=== PATIENT | male | born 1935 | race Caucasian/White ===

== ENCOUNTER 2017-02-04 13:55 | Inpatient (IN) | payer MEDICARE, OTHER ==
[2017-02-04 14:59] LABS: PCO2 Arterial 27 mmHg (35-45)
[2017-02-04] MEDS ORDERED: Furosemide IV* 10 MG/ML VIAL (40 MG) IV SLOW PU ONE ×3 (15:04→19:52)
--- NOTE | 2017-02-04 15:05 | RAD ---
HISTORY: Shortness of breath COMPARISONS: January 30, 2017 VIEWS:1: Single frontal portable view of the chest at 2:55 PM FINDINGS: LINES AND TUBES: There is a right-sided pacemaker. CARDIOMEDIASTINAL SILHOUETTE: The cardiomediastinal silhouette is normal for portable technique. PLEURA: The costophrenic angles are sharp. No pleural abnormalities are noted. LUNG PARENCHYMA: The lung volumes are low. The lungs are clear accounting for the phase of respiration. ABDOMEN: The upper abdomen is clear. There is no subphrenic gas. BONES AND SOFT TISSUES: No bone or soft tissue abnormalities are noted. IMPRESSION: LOW LUNG VOLUMES. NO ACTIVE CARDIOPULMONARY DISEASE.
[2017-02-04 15:31] LABS: Hematocrit 30 % (42-52); Hemoglobin 9.9 g/dl (14.0-18.0); Mean Corpuscular HGB Conc 33 g/dl (31-36); Mean Corpuscular Hemoglobin 29 pg (27-31); Mean Corpuscular Volume 89 fL (80-94); Mean Platelet Volume 8 um3 (7.4-10.4); Red Cell Distribution Width 14 % (10.5-15); White Blood Count 13.8 10^3/ul (3.5-10.8)
[2017-02-04 15:47] LABS: Troponin I 0.03 ng/mL (<0.04)
[2017-02-04 15:54] LABS: Albumin 2.8 g/dL (3.2-5.2); BUN/Creatinine Ratio 12.3 (8-20); EGFR African American 7.1 (>60); EGFR Non-African American 5.5 (>60); Globulin 4.4 g/dL (2-4); Magnesium 2.5 mg/dL (1.9-2.7); Potassium 4.5 mmol/L (3.5-5.0); Total Bilirubin 0.6 mg/dL (0.2-1.0); Total Protein 7.2 g/dL (6.4-8.9)
[2017-02-04] MEDS ORDERED: Ondansetron INJ* 2 MG/ML VIAL IV PRN (16:32)
[2017-02-04] MEDS ORDERED: Acetaminophen TAB* 325 MG PO PRN (16:32)
[2017-02-04] MEDS ORDERED: Metolazone TAB* 5 MG PO ONE (16:32)
[2017-02-04] MEDS: Sodium Citrate/Citric Acid* 15 ML UDC PO SCH ×2 (17:22→20:36)
--- NOTE | 2017-02-04 18:37 | ED ---
Rebecca Garcia Edward, scribed for Alfred Leyva on 02/04/17 at 1422 . Shortness of Breath - HPI Summary HPI Summary: 81 y/o male CYNTHIA c/o gradual onset SOB on exertion that started three weeks ago and became worse this morning. SOB aggravated by standing, ambulating and talking. Associated sx: productive cough. Denies fever. PMHx kidney failure. - History of Current Complaint Chief Complaint: EDShortnessOfBreath Time Seen by Provider: 02/04/17 14:12 Hx Obtained From: Patient Onset/Duration: Lasting Hours, Still Present Dyspnea At: Exertion Aggrevating Factors: Movement - Standing, ambulating, talking Associated Signs & Symptoms: Cough (Productive) - Allergy/Home Medications Allergies/Adverse Reactions: Allergies Allergy/AdvReac Type Severity Reaction Status Date / Time No Known Allergies Allergy Verified 01/24/17 15:29 Home Medications: Home Medications Furosemide TAB* [Lasix TAB*] 80 mg PO DAILY 02/04/17 [History Confirmed 02/04/17 ] Omeprazole CAP* [Prilosec CAP* 20 MG] 20 mg PO DAILY 02/04/17 [History Confirmed 02/04/17] Sodium Citrate & Citric Acid [Cytra-2] 1 suhas PO TID 02/04/17 [History Confirmed 02/04/17] PMH/Surg Hx/FS Hx/Imm Hx Previously Healthy: No Endocrine/Hematology History: Reports: Hx Thyroid Disease Cardiovascular History: Reports: Hx Hypertension History: Reports: Other Problems/Disorders - renal insufficiency Musculoskeletal History: Reports: Other Musculoskeletal History - r total hip - Immunization History Date of Tetanus Vaccine: Unk Date of Influenza Vaccine: None Infectious Disease History: Denies: Traveled Outside the [place] in Last 30 Days - Family History Known Family History: Negative: Other - Negative: CAD, arrythmias - Social History Alcohol Use: None Hx Substance Use: No Substance Use Type: Reports: None Hx Tobacco Use: No Smoking Status (MU): Never Smoked Tobacco Review of Systems Constitutional: Negative Eyes: Negative ENT: Negative Cardiovascular: Negative Positive: Shortness Of Breath, Cough - Productive Gastrointestinal: Negative Genitourinary: Negative Musculoskeletal: Negative Skin: Negative Neurological: Negative Psychological: Normal All Other Systems Reviewed And Are Negative: Yes Physical Exam Triage Information Reviewed: Yes Vital Signs Reviewed: Yes Appearance: Positive: Well-Appearing, No Pain Distress Skin: Positive: Warm, Skin Color Reflects Adequate Perfusion, Dry Head/Face: Positive: Normal Head/Face Inspection Eyes: Positive: EOMI, TREVIN ENT: Positive: Normal ENT inspection Neck: Positive: Supple, Nontender Respiratory/Lung Sounds: Positive: Breath Sounds Present, Other - Crepitations bilaterally Cardiovascular: Positive: RRR, Pulses are Symmetrical in both Upper and Lower Extremities Abdomen Description: Positive: Nontender, Soft Bowel Sounds: Positive: Present Musculoskeletal: Positive: Normal, Strength/ROM Intact Neurological: Positive: Normal, Sensory/Motor Intact, Alert, Oriented to Person Place, Time Diagnostics - Laboratory Result Diagrams: 02/04/17 15:19 02/04/17 15:19 Lab Statement: Any lab studies that have been ordered have been reviewed, and results considered in the medical decision making process. - Radiology CXR Xray Interpretation: No Acute Changes - LOW LUNG VOLUMES. NO ACTIVE CARDIOPULMONARY DISEASE. ED PHYSICIAN AGREEABLE Radiology Interpretation Completed By: Radiologist - EKG 1 EKG Interpretation: 14:40 - SINUS RHYTHM @ 67 BPM Course/Dx - Course Assessment/Plan: 81 y/o male BIBA c/o gradual onset SOB on exertion that started three weeks ago and became worse this morning. SOB aggravated by standing, ambulating and talking. Associated sx: productive cough. Denies fever. PMHx kidney failure. EKG 14:40 - SINUS RHYTHM @ 67 BPM. CXR SHOWS LOW LUNG VOLUMES. NO ACTIVE CARDIOPULMONARY DISEASE. Discussed with Dangelo Barajas who accepted the pt for admission to [facility] [place]. - Diagnoses Provider Diagnoses: Hypoxia, Dyspnea, Anemia, Renal failure - Physician Notifications Discussed Care of Patient With: Dangelo Barajas Time Discussed With Above Provider: 16:30 Discharge - Discharge Plan Condition: Stable Disposition: ADMITTED TO Health system documentation as recorded by the Rebecca armendariz Edward accurately reflects the service I personally performed and the decisions made by , Alfred Leyva.
--- NOTE | 2017-02-04 20:31 | HP ---
ATTENDING ADDENDUM NOW INCLUDED ON THIS REPORT CC: Dr. Zimmerman; Dr. Guajardo; Dr. Nolen; HISTORY AND PHYSICAL: DATE OF ADMISSION: 02/04/17 PRIMARY CARE PROVIDER: Dr. Zimmerman. CONSULTING DISPATCHER SERVICE: Dr. Guajardo. CONSULTING SURGEON: Dr. Nolen. ATTENDING PHYSICIAN: Dr. Styles * (DICTATED BY DANGELO FRY NP) CHIEF COMPLAINT: Shortness of breath. HISTORY OF PRESENT ILLNESS: Mr. Dockery is an 81-year-old male patient who has a history of CKD, stage 5. He has been getting workup for placement of a PD catheter and unfortunately, over the last 3 weeks, he has had progressive worsening shortness of breath with minimal exertion. He noticed today that even just changing positions in bed, he was getting really winded. He was instructed by Dr. Guajardo that if this were to happen, he should get in to the ER to be evaluated, which he did. He denies having any chest pain. He does admit to having what sounds like orthopnea because if he lies flat, he gets coughing, when he sits up, he feels better. To his knowledge, he has not gained weight, but then he says his pants have been fitting tighter and he has to go up a loop. He says that he recently was prescribed Lasix 80 mg. He has been taking this. He has been urinating, but it just seems that it has not been helping. He denied having any fevers, no chills. He denied having any abdominal discomfort. No nausea or any vomiting. He was concerned because of the shortness of breath, he came in, was evaluated and we were asked to evaluate him in admission, because it appeared that his renal failure was becoming worse and that he may require a more urgent dialysis. PAST MEDICAL HISTORY: Significant for: 1. CKD, stage 5, awaiting dialysis. 2. Hypertension. 3. Hypothyroidism. 4. Complete heart block, status post pacemaker. 5. Basal cell skin cancer. PAST SURGICAL HISTORY: 1. He has had a pacemaker placement. 2. He has had a hernia repair. 3. He has had right total hip arthroplasty. MEDICATIONS: His home meds according to the list they provided include: 1. Norvasc 10 mg at bedtime. 2. Bicitra 15 cc p.o. four times a day. 3. Omeprazole 20 mg daily. 4. Lasix 80 mg daily. 5. Synthroid 100 mcg p.o. daily. 6. Atenolol 12.5 mg p.o. b.i.d. ALLERGIES TO MEDICATIONS: Include no known drug allergies. FAMILY HISTORY: His mother had a history of hypertension, father had a history of stroke. SOCIAL HISTORY: He does not smoke. He does not drink. Surrogate decision maker is his . REVIEW OF SYSTEMS: There is no documented fever. He denied any significant weight change to me. There was no double vision. He denied having any ear discharge. There was no rhinorrhea. No sore throat, no thyroid enlargement. Denies any chest pain. There is orthopnea. There is no nocturnal dyspnea. There is no abdominal pain. There was no nausea or vomiting. No dysuria. There was no frequency. No loss of consciousness. No pruritus and no skin ulcerations. Review of 14 systems was completed, all others negative. PHYSICAL EXAMINATION GENERAL: At this time, Mr. Dockery is an 81-year-old male patient. He actually appears to be well nourished, well developed. He does not appear to be in any acute distress. VITAL SIGNS: Reveal blood pressure 127/60 with a pulse of 67, respirations 22, O2 sat on room air was 95%, temperature 97.4. HEENT: Head is atraumatic and normocephalic. Eyes: EOMs intact. Sclerae anicteric. Throat: Oral mucosa appears to be moist. No oropharyngeal erythema. NECK: Supple. LUNGS: Diminished in the bases. No wheezes, rales, or rhonchi. HEART: Sounds S1, S2. Regular rate and rhythm. No murmurs, rubs, or gallops. ABDOMEN: Soft. It was nontender, but it was mildly distended. EXTREMITIES: Pulses were 2+ throughout. He is able to move all 4 extremities with 5/5 strength. He does have some trace edema bilaterally. NEUROLOGIC: He is awake, he is alert, and he is oriented x3. Tongue midline. Folder Hand equal. No gross focal deficits. SKIN: Intact. DIAGNOSTIC STUDIES/LAB DATA: His labs today revealed a WBC of 13.8, RBC of 3.40, hemoglobin of 9.9, hematocrit of 30, and a platelet count of 413. His INR was 1.23, PTT of 24.9. Blood gas revealed a pH of 7.41, PCO2 of 27, PO2 66 , bicarb 19. The sodium was 131, potassium 4.5, chloride of 98, bicarb 17, BUN 114, his creatinine was 9.28, his glucose was 177, lactate 1.1, calcium 9, total mag 2.5. Total bili 0.6, AST 46, ALT 53, alk phos 154. BNP 271. Albumin of 2.8. He did have a chest x-ray obtained today, which to my review it does not appear to be a poor film; it has poor inspiration. Radiology read it as low lung volumes. No active cardiopulmonary disease. He had an EKG obtained today, which shows normal sinus rhythm, there is a lot of artifact, no gross ST elevations or T-wave inversions. Old medical records were reviewed. He did have an echo with Dr. Valverde which showed moderate aortic stenosis with an EF of 60% to 65%. Old medical records were reviewed. ASSESSMENT AND PLAN: Mr. Dockery is an 81-year-old male patient coming in to the ER today with complaints of shortness of breath that has been getting progressively worse over the last 3 weeks. The hospitalist service was asked to evaluate for admission and he will be admitted under inpatient status for: 1. End-stage renal disease, now progressing. At this point, I did touch base with Dr. Guajardo. It looks like that the patient is probably going to require more urgent dialysis. The plan is to go ahead and put tunneled catheter in tomorrow. I do not think he needs emergent dialysis. The plan would be to give him Lasix 120 mg. He got 40 already in the ED and we will give him another 80 now and 5 of Zaroxolyn. We will reevaluate him in the morning to see if we need to do another 120 and another 5 of Zaroxolyn. I did consult with Dr. Guajardo. We will check his lytes and follow them closely. Continue his Bicitra and again, I did touch base with Dr. Nolen, who will hopefully place the catheter tomorrow. 2. Hypertension. We will continue meds as prescribed. 3. History of hypothyroidism. Continue with Synthroid. 4. DVT prophylaxis. He will be placed on heparin subcu. 5. Code status. Full code. 6. Fluids, electrolytes, and nutrition. He can have a renal diet and then he will be n.p.o. after midnight for tonight. TIME SPENT: On the admission was approximately 60 minutes, greater than half the time was spent [id number] with the patient obtaining my history and physical; other half time was spent going over the plan of care with the patient and implementing the plan of care. I did discuss the plan of care with my attending, Dr. Styles; she is in agreement. DANGELO FRY NP ADDENDUM: Trent Dockery is an 81-year-old male with history of chronic kidney disease, stage 4 to 5, who had been prepared for hemodialysis by Dr. Guajardo. Patient presents complaining with worsening shortness of breath and his creatinine is 9. He has increased anion gap and carbon dioxide of 17. At this point, patient is going to be admitted to the hospital with preparation for dialysis. Surgery was notified about the need of IV access for dialysis. Dr. Guajardo will follow with the patient. For further details of presentation and plan, please see history and physical dictated by Dangelo Fry on 02/04/17 with which I agree. EDNA STYLES MD [id number]/CPS #: [id number]/[id number] #: [id number] CATHY
[2017-02-04] MEDS: Atenolol TAB* 25 MG PO SCH (20:37)
[2017-02-04] MEDS: amLODIPine TAB* 5 MG PO SCH (20:38)
[2017-02-04] MEDS: Heparin VIAL(*) 5000 UNITS/ML VIAL (FIVE THOUSAND) SUBCUT SCH (20:43)
--- NOTE | 2017-02-04 21:54 | HP ---
HISTORY AND PHYSICAL: ADDENDUM: Trent Dockery is an 81-year-old male with history of chronic kidney disease, stage 4 to 5, who had been prepared for hemodialysis by Dr. Guajardo. Patient presents complaining with worsening shortness of breath and his creatinine is 9. He has increased anion gap and carbon dioxide of 17. At this point, patient is going to be admitted to the hospital with preparation for dialysis. Surgery was notified about the need of IV access for dialysis. Dr. Guajardo will follow with the patient. For further details of presentation and plan, please see history and physical dictated by Dangelo Barajas on 02/04/17 with which I agree. [id number]/[facility] #: [id number] MTDD
[2017-02-04 23:36] LABS: Urine Bacteria Absent (Absent); Urine Bilirubin Negative (Negative); Urine Glucose Negative (Negative); Urine Nitrite Negative (Negative)
[2017-02-05] MEDS: Heparin VIAL(*) 5000 UNITS/ML VIAL (FIVE THOUSAND) SUBCUT SCH ×3 (04:43→20:44)
[2017-02-05] MEDS: Levothyroxine TAB* 100 MCG TAB PO SCH (05:16)
[2017-02-05 06:02] LABS: Hematocrit 28 % (42-52); Hemoglobin 9.4 g/dl (14.0-18.0); Mean Corpuscular HGB Conc 34 g/dl (31-36); Mean Corpuscular Hemoglobin 30 pg (27-31); Mean Corpuscular Volume 88 fL (80-94); Mean Platelet Volume 8 um3 (7.4-10.4); Red Blood Count 3.17 10^6/ul (4.0-5.4); Red Cell Distribution Width 14 % (10.5-15); White Blood Count 13.9 10^3/ul (3.5-10.8)
[2017-02-05 06:03] LABS: Add Diff/Slide Review? Slide Review Added; Comments Flag Yes
[2017-02-05 06:15] LABS: BUN/Creatinine Ratio 13.1 (8-20); Calcium 8.8 mg/dL (8.6-10.3); EGFR African American 6.8 (>60); EGFR Non-African American 5.3 (>60); Potassium 4.4 mmol/L (3.5-5.0)
--- NOTE | 2017-02-05 09:56 | CONS ---
CC: [facility]; Dr. Tavo Guajardo, Nephrology; Dr. Tavo Zimmerman * CONSULTATION REPORT: DATE OF CONSULT: 02/05/17 REFERRING PROVIDER: Dangelo Barajas NP REASON FOR CONSULT: Hemodialysis catheter placement. 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 Guajardo. He recently had been making plans for placement of a peritoneal dialysis catheter as it was expected he was going to need dialysis soon, but unfortunately over the last several weeks, he has had progressive worsening of shortness of breath, fatigue, and fluid overload. He has been increasing his Lasix dose and Dr. Guajardo has seen him recently; however, he presented to the emergency room with shortness of breath on exertion, which he felt needed evaluation. He has had no chest pain. He has a productive cough. He is not able to ambulate without taking frequent rest stops. He has had no abdominal discomfort. There have been no fevers, shakes, or chills. He has got no nausea or vomiting. PAST MEDICAL HISTORY: 1. Chronic kidney disease, stage 5. 2. Hypertension. 3. Hypothyroidism. 4. History of complete heart block, status post right-sided pacemaker placement. 5. Basal cell cancer. PAST SURGICAL HISTORY: 1. Pacemaker insertion. 2. Hernia repair. 3. Right total hip arthroplasty. MEDICATIONS: On admission include: 1. Omeprazole. 2. Lasix. 3. Synthroid. 4. Atenolol. 5. Norvasc. 6. Bicitra. ALLERGIES: He has no known drug allergies. SOCIAL HISTORY: He does not smoke. He does not drink. He is . 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 He has 2 grown children. REVIEW OF SYSTEMS: He has had no fever. He denies weight change recently. No chest pain, shortness of breath. PHYSICAL EXAM: Temperature is afebrile, pulse 62, respirations are 18, room air saturation 98%, blood pressure 101/49. In general, he is rather slender male, somewhat pale, but appears to be in no apparent distress. He talks in full sentences. Does not appear to be dyspneic. HEENT: There is no jugular venous distention. Trachea was midline. Lungs with diminished breath sounds at the base, but no rhonchi or rales. He has a pacemaker in the right anterior chest wall. No prior surgical incisions in the left neck or chest. Heart has regular rate and rhythm. Abdomen is soft and nondistended. LABORATORY DATA: Laboratory values today include a white blood cell count of 13.9 with a hemoglobin of 9.4. His BUN and creatinine are 126 and 9.59, which are slightly increased from last night's admission. BNP is 271. IMPRESSION AND PLAN: Chronic kidney disease, worsening with fluid overload and worsening renal function per laboratory workup and clinically. I just reviewed his care with Dr. Tavo Guajardo this morning. He would like to start hemodialysis tomorrow and is requested a tunneled hemodialysis catheter be inserted today for optimal use tomorrow. This will be a bridge most likely for his peritoneal dialysis catheter insertion when he is felt to be a surgical candidate for that procedure. I discussed this with the patient. The procedure was explained and the risks of , but not limited to, bleeding, infection, pneumothorax, catheter malfunction/ malposition, the risk of anesthesia, discomfort, and healing times were all explained. In addition, I discussed the pacemaker management with Dr. Oleg Alan, Cardiology, and he will complete the pacemaker form. The patient normally sees Dr. Eitan Valverde and he also would place the pacemaker. [id number]/[facility] #: [id number] [facility] HOSPITALMikayla
[2017-02-05] MEDS: Atenolol TAB* 25 MG PO SCH ×2 (10:06→20:07)
[2017-02-05] MEDS: Sodium Citrate/Citric Acid* 15 ML UDC PO SCH ×3 (10:09→20:07)
[2017-02-05] MEDS ORDERED: ceFAZolin 2 GM PREMIX (*) 50 ML IVPB ONE (13:24)
[2017-02-05] MEDS ORDERED: fentaNYL* 50 MCG/ML 2 ML VIAL (100 MCG VIAL) ONE (13:49)
[2017-02-05] MEDS ORDERED: Midazolam* 1 MG/ML 2 ML VIAL (2 MG) ONE (13:50)
[2017-02-05] MEDS ORDERED: Propofol* 10 MG/ML 20 ML BTL IV PUSH ONE (13:51)
[2017-02-05] MEDS ORDERED: Lidocaine 1% INJ* 10 MG/ML 30 ML SDV ONE (13:54)
[2017-02-05] MEDS ORDERED: Lidocaine 1.5% EPI 1:200,000* 30 ML SDV ONE (14:20)
[2017-02-05] MEDS ORDERED: Bupivacaine 0.5% SDV PF* 30 ML VIAL ONE (14:21)
[2017-02-05] MEDS: Omeprazole CAP* 20 MG PO SCH (16:04)
[2017-02-05] MEDS ORDERED: Iohexol 180 (CONTRAST) 10 ML SDV IV ONE (16:36)
--- NOTE | 2017-02-05 16:42 | PN ---
Subjective Date of Service: 02/05/17 Interval History: Patient currently feels well. Says the issue is he gets sob with just minimal exertion. Objective Active Medications: Acetaminophen (Tylenol Tab*) 650 mg PO Q4H PRN PRN Reason: FEVER/PAIN Amlodipine Besylate (Norvasc Tab*) 10 mg PO BEDTIME [facility] Last Admin: 02/04/17 20:38 Dose: 10 mg Atenolol (Tenormin Tab*) 12.5 mg PO BID [facility] Last Admin: 02/05/17 10:06 Dose: 12.5 mg Citric Acid/Sodium Citrate (Bicitra*) 15 ml PO TID [facility] Last Admin: 02/05/17 16:04 Dose: Not Given Heparin Sodium (Porcine) (Heparin Vial(*)) 5,000 units SUBCUT Q8HR [facility] Last Admin: 02/05/17 16:04 Dose: Not Given Levothyroxine Sodium (Synthroid Tab*) 100 mcg PO 0600 [facility] Last Admin: 02/05/17 05:16 Dose: 100 mcg Omeprazole (Prilosec Cap*) 20 mg PO DAILY [facility] Last Admin: 02/05/17 16:04 Dose: Not Given Ondansetron HCl (Zofran Inj*) 4 mg IV Q6H PRN PRN Reason: NAUSEA Vital Signs 02/04/17 02/04/17 02/04/17 17:00 18:15 19:40 Temperature 98.2 F 98.5 F Pulse Rate 65 65 66 Respiratory 20 18 Rate Blood Pressure 115/69 124/58 122/62 (mmHg) O2 Sat by Pulse 93 94 94 Oximetry 02/04/17 02/05/17 02/05/17 20:00 00:02 03:50 Temperature 98.6 F 98.7 F Pulse Rate 63 64 Respiratory 18 20 22 Rate Blood Pressure 116/57 117/60 (mmHg) O2 Sat by Pulse 93 93 Oximetry 02/05/17 02/05/17 02/05/17 07:32 07:42 11:10 Temperature Pulse Rate 62 61 Respiratory 18 18 18 Rate Blood Pressure 101/49 115/52 (mmHg) O2 Sat by Pulse 92 92 Oximetry Oxygen Devices in Use Now: None Appearance: Elderly gentleman sitting up in bed in NAD Eyes: No Scleral Icterus Ears/Nose/Mouth/Throat: Clear Oropharnyx Neck: No Thyroid Enlargement, Masses Respiratory: Clear to Auscultation Cardiovascular: - - S1S2 sheryl Abdominal: No Hepatosplenomegaly Lymphatic: No Cervical Adenopathy Extremities: No Clubbing, Cyanosis Skin: No Rash or Ulcers Neurological: Alert and Oriented x 3 Result Diagrams: 02/05/17 05:45 02/05/17 05:45 Assess/Plan/Problems-Billing Assessment: - Patient Problems (1) SOB (shortness of breath) Current Visit: Yes Status: Acute Code(s): R06.02 - SHORTNESS OF BREATH SNOMED Code(s): 459120093 Comment: Likely from accumulation of fluid secondary to ESRD. For dialysis cath and hemodialysis. Then when stabilized for peritoneal dialysis cath. (2) ESRD (end stage renal disease) Current Visit: Yes Status: Acute Code(s): N18.6 - END STAGE RENAL DISEASE SNOMED Code(s): 82015920 Comment: See above. Likely cause of SOB. (3) HTN (hypertension) Current Visit: Yes Status: Acute Code(s): I10 - ESSENTIAL (PRIMARY) HYPERTENSION SNOMED Code(s): 67742308 Comment: Adequate control. No change in rx. (4) Hypothyroid Current Visit: Yes Status: Acute Code(s): E03.9 - HYPOTHYROIDISM, UNSPECIFIED SNOMED Code(s): 78778981 Comment: Stable. Continue Levothyroxine. (5) DVT prophylaxis Current Visit: Yes Status: Acute Code(s): TAP5439 - SNOMED Code(s): 588769014 Comment: Heparin sq (6) Full code status Current Visit: Yes Status: Acute Code(s): Z78.9 - OTHER SPECIFIED HEALTH STATUS SNOMED Code(s): 142393406
[2017-02-05] MEDS ORDERED: oxyCODONE/Acetamin 5/325 MG* TAB PO PRN (17:33)
--- NOTE | 2017-02-05 17:36 | SURGPN ---
Brief Operative Note - Surgery Procedures: Procedures OPERATIVE REPORT PRE-OP: Chronic kidney disease POST-OP: Same PROCEDURE: Insertion of tunneled Tessio 27cm/30cm left internal jugular Hemodialysis catheter SURGEON: MD Callum ANESTHESIA:Local with [facility] Dr. Morfin ASST: none IVF: min EBL: min SPECIMEN:none DRAIN: none WOUND CLASS: One COMPLICATIONS: Unable to initially place Hemosplit catheter, Tessio then inserted. See dictated note. TO PACU
--- NOTE | 2017-02-05 17:59 | RAD ---
INDICATION: chest port placement COMPARISONS: None relevant TECHNIQUE: Fluoroscopy was provided for a vascular access procedure. Total fluoroscopy time is: 2.4 seconds FINDINGS: Spot images demonstrate a central venous catheter with the tip overlying the cavoatrial junction. IMPRESSION: FLUOROSCOPY WAS PROVIDED FOR A VASCULAR ACCESS PROCEDURE CPT II Codes: 6045F
--- NOTE | 2017-02-05 18:06 | RAD ---
HISTORY: Status post dialysis catheter placement COMPARISONS: February 04, 2017 at 1:51 PM VIEWS:1: Single frontal portable view of the chest at 5:42 PM FINDINGS: LINES AND TUBES: A dual-lumen central venous catheter is noted from a left internal jugular vein approach with the tip overlying the cavoatrial junction. A right-sided pacemaker is noted. CARDIOMEDIASTINAL SILHOUETTE: The cardiomediastinal silhouette is normal for portable technique. PLEURA: The costophrenic angles are sharp. No pleural abnormalities are noted. LUNG PARENCHYMA: The lung volumes are low. The lungs are clear accounting for the phase of respiration. ABDOMEN: The upper abdomen is clear. There is no subphrenic gas. BONES AND SOFT TISSUES: No bone or soft tissue abnormalities are noted. IMPRESSION: LINES AND TUBES ABOVE. NO ACTIVE CARDIOPULMONARY DISEASE.
[2017-02-05] MEDS: amLODIPine TAB* 5 MG PO SCH (20:07)
--- NOTE | 2017-02-05 21:02 | RAD ---
HISTORY: Ascites, elevated LFTs COMPARISONS: None TECHNIQUE: Multiple transverse and longitudinal ultrasound images were obtained of the right upper quadrant of the abdomen using grayscale and color Doppler imaging. FINDINGS: LIVER: The liver has a micronodular contour and is small consistent with cirrhosis. There is a hyperechoic mass centrally within the liver measuring 3.5 x 4.4 x 4.3 cm in size. There is normal hepatopedal flow of the portal vein on Doppler imaging. BILIARY TREE: There is no intrahepatic or extrahepatic biliary dilatation. The common duct measures 0.5 cm. GALLBLADDER: There is mild gallbladder wall thickening. There is no sonographic Palomares's sign or cholelithiasis. PANCREAS: The pancreas is obscured by overlying bowel gas. RIGHT KIDNEY: The right kidney is not well visualized AORTA AND IVC: The vessels are not well visualized. FLUID: There are no pleural effusions. There is no free fluid within the hepatorenal recess. OTHER FINDINGS: There is a large amount of ascites IMPRESSION: 1. CIRRHOTIC LIVER. 2. HEPATIC MASS MEASURING 4.4 CENTERS IN SIZE. GIVEN THE PRESENCE OF CIRRHOSIS, THIS IS CONCERNING FOR HEPATIC NEOPLASM, INCLUDING HEPATOCELLULAR CARCINOMA. 3. MILD GALLBLADDER WALL THICKENING, LIKELY REACTIVE SECONDARY TO HEPATIC INFLAMMATION OR SECONDARY TO HYPOPROTEINEMIA. 4. ASCITES. 5. THE PANCREAS AND RIGHT KIDNEY ARE NOT WELL-VISUALIZED
[2017-02-06] MEDS: Levothyroxine TAB* 100 MCG TAB PO SCH (05:14)
[2017-02-06] MEDS: Heparin VIAL(*) 5000 UNITS/ML VIAL (FIVE THOUSAND) SUBCUT SCH ×3 (05:14→21:01)
--- NOTE | 2017-02-06 08:34 | PN ---
PROGRESS NOTE: DATE OF SERVICE: 02/05/17 HISTORY: Mr. Dockery is an 81-year-old patient well known to me from outpatient consultation and [facility]. He has been having deteriorating renal function over the past few months. This has been mu ch quicker recently than it had been for the last few years. He had developed progressive weakness, lethargy, dyspnea on exertion, and accumulating edema. I have been aggressively attempting to diur morelia him which up until last Monday when I saw him, had actually been going reasonably well and he avitia d been improving. Since then he has deteriorated again and he has had considerable weakness. He is breathing a little better now than he had been last night. Even though he only had a minimal diure sis overnight. He has no chest pain. No lightheadedness. No dizziness. PHYSICAL EXAMINATION: His blood pressure is 101/49 with a pulse of 62, respirations are 18. He has no jugular venous distention. His chest reveals diminished breath sounds in the bases. His heart reveals a regular rhythm at about 62. I had understood his pacemaker was set at 70. There is 1+ ed judith. LABORATORY DATA: Review of his laboratory studies reveals a hemoglobin of 9.4. Sodium 134, potassiu m 4.4, total CO2 19, chloride 97, BUN 126. It was 80 a week ago and 66 the week before that. His c reatinine is 9.59. His creatinine on the 01/24/17 was 6.21. IMPRESSION: Rapidly deteriorating chronic renal failure. We are going to have a temporary dialysis catheter placed, and hopefully soon he will be able to go to the operating room to have a peritonea l dialysis catheter placed. I have discussed the case with Dangelo Barajas. [id number][place] [place]: [id number]
--- NOTE | 2017-02-06 08:51 | OP ---
CC: Dr. Zimmerman; Dr. Tavo Guajardo from Nephrology. * DATE OF OPERATION: 02/05/17 - ROOM #445 DATE OF : 37 SURGEON: Dr. Nolen. MERGERS AND ACQUISITIONS ATTORNEY: None. ANESTHESIOLOGIST: Dr. Morfin. ANESTHESIA: Local with monitored anesthesia care. PRE-OP DIAGNOSIS: Chronic kidney disease requiring hemodialysis. POST-OP DIAGNOSIS: Chronic kidney disease requiring hemodialysis. OPERATIVE PROCEDURE: Insertion of a 27 cm/30 cm left internal jugular tunneled Tesio hemodialysis catheter. ESTIMATED BLOOD LOSS: Minimal. SPECIMENS: None. COMPLICATIONS: Inability to initially place a HemoSplit catheter and the procedure was converted to a Tesio insertion successfully. DRAINS: None. 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 He has been admitted for medical management and hemodialysis and tunneled hemodialysis catheter was requested by Dr. Guajardo. The patient has a pacemaker in the right chest wall. Procedure was discussed with the patient and his and the risks include but not limited to bleeding, infection, pneumothorax, catheter malfunction/ thrombosis, discomfort were all explained. DESCRIPTION OF PROCEDURE: Written and informed consent was obtained, left chest was marked with indelible ink and preoperative antibiotics were administered. The patient was taken to the operating room and placed in the supine position. Warming blanket was applied. The left chest and neck were widely prepped and draped in the usual sterile fashion. Time-out verification was completed. Initially, 1% lidocaine with epinephrine was infiltrated in the left neck at the bifurcation of the sternocleidomastoid muscle and under ultrasound I used an 18- gauge needle to puncture the left internal jugular vein. This appeared to be of adequate caliber; however, it was not particularly distended and I did puncture the left carotid artery on the first pass and then quickly identified this, the needle was removed and I held firm pressure over the artery for at least 4 to 5 minutes. There was no further problems with hematoma or bleeding from this site. With careful use of the ultrasound, I was able to puncture the vein with good blood return after several attempts. The guidewire was inserted by fluoroscopy and confirmed to be down into the heart. Next measuring the length of expected tunneling using a measure a 24 cm HemoSplit catheter was selected. Local anesthetic was infiltrated along the left chest wall inferior to the initial stick site over the clavicle. A counter incision was then made about 5 cm below and the catheter was tunneled from the exit site to the puncture site without difficulty. Next the tract was dilated over the guidewire using fluoroscopy. It appeared to be somewhat of a tortuous route where the guidewire extended down across from the left to the right side and I did place the sheath dilator system. It appeared to make the turn down into the superior vena cava; however, upon placing the catheter and using the peal-away sheath technique the catheter itself did not make the turn well and it did not head inferiorly more towards the caval atrial junction as intended, although I think the length was correct. It was more perpendicular to the wall of the superior vena cava. Both ports flushed well including the venous port, but the arterial port was sluggish and somewhat positional. I tried to manipulate this several times either by advancing it or pulling it back further on fluoroscopy, but it still did not improve the flow and at this point I did not feel that this was going to be an acceptable catheter for hemodialysis. At this point, I made a decision to remove the catheter and place a Tesio which I felt with 2 smaller catheters is somewhat stiffer and a smaller caliber dilator may be able to make the turn down into the caval atrial junction. Next, I divided the catheter at the neck insertion site and a guidewire was fed down into the heart without difficulty and the HemoSplit catheter was removed from both the tunneled tract as well as the mediastinum. Using the dilator that comes with the Tesio kit, placed this over the guidewire and a second guidewire was inserted in the usual fashion in preparation for the catheter insertion. Next, sequentially the sheath dilators were passed guidewires without difficulty and these extended nicely down in towards the caval atrial junction and the catheters were passed deep down into the atrium and using the sheath peal away system. Next I proceeded to tunnel both catheters to the counter incision just below the clavicle before withdrawing them into the appropriate position. Next using fluoroscopy I pulled back catheters back a similar distance. It should be noted it was very difficult to identify on the fluoroscopy machine due to the pacemaker leads as well as poor quality study where the catheter tips were. I did also try some contrast through the venous limb, but it was not helpful nor was a subtraction study helpful. Thus by measuring the expected length of the catheter at its exit point and into the heart I felt that they were in appropriate and correct position. They both flushed well and withdrew blood well as expected. Once this has been cleared I did make 2 more counter incisions inferiorly and both catheters were tunneled individually and brought out through separate stab wounds on the lower chest wall. The catheters were cut to the appropriate length and then flushed with saline and subsequent heparin saline. Appropriate clips and attachments were applied. Hemostasis was assured. The exit site and the counter incisions on the chest wall as well as the puncture site were then closed with 3-0 and 4-0 Polysorb suture. Steri-Strips were applied. Occlusive Tegaderm dressings were then applied. The patient tolerated the procedure well, was taken to the recovery room in stable condition. A postprocedural chest x-ray showed the catheters to be in adequate position. No evidence of pneumothorax or other acute mediastinal or pulmonary abnormality. [id number]/[facility] #: [id number] CATHY
[2017-02-06] MEDS: Sodium Citrate/Citric Acid* 15 ML UDC PO SCH ×3 (08:58→21:01)
[2017-02-06] MEDS: Atenolol TAB* 25 MG PO SCH ×2 (08:58→20:49)
[2017-02-06] MEDS: Omeprazole CAP* 20 MG PO SCH (08:59)
--- NOTE | 2017-02-06 09:53 | PN ---
Subjective Date of Service: 02/06/17 Interval History: Too SOB to do anything. No BM since admission. Annoying dry cough. Objective Active Medications: Acetaminophen (Tylenol Tab*) 650 mg PO Q4H PRN PRN Reason: FEVER/PAIN Amlodipine Besylate (Norvasc Tab*) 10 mg PO BEDTIME [facility] Last Admin: 02/05/17 20:07 Dose: 10 mg Atenolol (Tenormin Tab*) 12.5 mg PO BID [facility] Last Admin: 02/06/17 08:58 Dose: 12.5 mg Citric Acid/Sodium Citrate (Bicitra*) 15 ml PO TID [facility] Last Admin: 02/06/17 08:58 Dose: 15 ml Heparin Sodium (Porcine) (Heparin Vial(*)) 5,000 units SUBCUT Q8HR [facility] Last Admin: 02/06/17 05:14 Dose: 5,000 units Levothyroxine Sodium (Synthroid Tab*) 100 mcg PO 0600 [facility] Last Admin: 02/06/17 05:14 Dose: 100 mcg Omeprazole (Prilosec Cap*) 20 mg PO DAILY [facility] Last Admin: 02/06/17 08:59 Dose: 20 mg Ondansetron HCl (Zofran Inj*) 4 mg IV Q6H PRN PRN Reason: NAUSEA Oxycodone/Acetaminophen (Percocet 5/325 Tab*) 1 tab PO Q4H PRN PRN Reason: PAIN Vital Signs 02/05/17 02/05/17 02/05/17 11:10 17:30 17:45 Temperature 98.1 F Pulse Rate 61 60 70 Respiratory 18 20 28 Rate Blood Pressure 115/52 111/52 121/78 (mmHg) O2 Sat by Pulse 92 94 94 Oximetry 02/05/17 02/05/17 02/05/17 18:00 18:31 19:52 Temperature 97.5 F 98.6 F Pulse Rate 66 65 64 Respiratory 16 28 16 Rate Blood Pressure 129/67 108/68 110/56 (mmHg) O2 Sat by Pulse 94 95 98 Oximetry 02/05/17 02/05/17 02/06/17 20:00 23:59 03:28 Temperature 97.7 F 98.3 F Pulse Rate 62 61 Respiratory 22 20 16 Rate Blood Pressure 120/56 128/56 (mmHg) O2 Sat by Pulse 94 93 Oximetry 02/06/17 07:18 Temperature 99.6 F Pulse Rate 62 Respiratory 22 Rate Blood Pressure 101/52 (mmHg) O2 Sat by Pulse 93 Oximetry Oxygen Devices in Use Now: Nasal Cannula Appearance: Alert, at 45 degrees in bed. Looks discouraged. Occ (once) dry cough during my visit. Ears/Nose/Mouth/Throat: Clear Oropharnyx, Mucous Membranes Moist Neck: NL Appearance and Movements; NL JVP, No Thyroid Enlargement, Masses Respiratory: Symmetrical Chest Expansion and Respiratory Effort - Decreased BS both bases Cardiovascular: NL Sounds; No Murmurs; No JVD, RRR, No Edema, - Extremities: No Edema, No Clubbing, Cyanosis, - Skin: No Rash or Ulcers, No Nodules or Sclerosis, - Neurological: Alert and Oriented x 3, NL Sensation Result Diagrams: 02/05/17 05:45 02/05/17 05:45 Assess/Plan/Problems-Billing Assessment: - Patient Problems (1) ESRD (end stage renal disease) Current Visit: Yes Status: Acute Code(s): N18.6 - END STAGE RENAL DISEASE SNOMED Code(s): 65769900 Comment: HD catheter L chest. HD 02/06. Plan for peritoneal dialysis catheter soon. (2) Hypothyroid Current Visit: Yes Status: Acute Code(s): E03.9 - HYPOTHYROIDISM, UNSPECIFIED SNOMED Code(s): 78508036 Comment: TSH add on pending. Continue Levothyroxine. (3) Third degree heart block Current Visit: No Status: Acute Priority: High Onset Date: 01/19/15 Code (s): I44.2 - ATRIOVENTRICULAR BLOCK, COMPLETE SNOMED Code(s): 11344681 Comment: PPM in place. (4) HTN (hypertension) Current Visit: Yes Status: Acute Code(s): I10 - ESSENTIAL (PRIMARY) HYPERTENSION SNOMED Code(s): 57902977 Comment: Continue amlodipine and atenolol.
[2017-02-06 10:10] LABS: TSH (Thyroid Stimulating Horm) 12.39 mcIU/mL (0.34-5.60)
[2017-02-06] MEDS ORDERED: Heparin DIALYSIS ONLY(*) 1,000 UNITS/ML VIAL DIALYSIS ONE (12:00)
[2017-02-06] MEDS: amLODIPine TAB* 5 MG PO SCH (21:00)
[2017-02-07] MEDS: Levothyroxine TAB* 100 MCG TAB PO SCH (05:24)
[2017-02-07] MEDS: Heparin VIAL(*) 5000 UNITS/ML VIAL (FIVE THOUSAND) SUBCUT SCH ×3 (05:24→20:20)
[2017-02-07 05:45] LABS: Albumin 2.6 g/dL (3.2-5.2); BUN/Creatinine Ratio 11.8 (8-20); Calcium 8.2 mg/dL (8.6-10.3); Globulin 3.9 g/dL (2-4); Total Bilirubin 0.5 mg/dL (0.2-1.0); Total Protein 6.5 g/dL (6.4-8.9)
[2017-02-07] MEDS ORDERED: Levothyroxine TAB* 25 MCG TAB PO ONE (09:04)
--- NOTE | 2017-02-07 10:07 | PN ---
Subjective Date of Service: 02/07/17 Interval History: Smewhat better, somewhat less SOB. . Occ green sputum. Emesis after coughing hard. Poor appetite. Objective Active Medications: Acetaminophen (Tylenol Tab*) 650 mg PO Q4H PRN PRN Reason: FEVER/PAIN Amlodipine Besylate (Norvasc Tab*) 10 mg PO BEDTIME [facility] Last Admin: 02/06/17 21:00 Dose: Not Given Atenolol (Tenormin Tab*) 12.5 mg PO BID [facility] Last Admin: 02/06/17 20:49 Dose: Not Given Citric Acid/Sodium Citrate (Bicitra*) 15 ml PO TID [facility] Last Admin: 02/06/17 21:01 Dose: Not Given Guaifenesin (Robitussin*) 10 ml PO QID [facility] Heparin Sodium (Porcine) (Heparin Vial(*)) 5,000 units SUBCUT Q8HR [facility] Last Admin: 02/07/17 05:24 Dose: 5,000 units Levothyroxine Sodium (Synthroid Tab*) 125 mcg PO 0600 [facility] Omeprazole (Prilosec Cap*) 20 mg PO DAILY [facility] Last Admin: 02/06/17 08:59 Dose: 20 mg Oxycodone/Acetaminophen (Percocet 5/325 Tab*) 1 tab PO Q4H PRN PRN Reason: PAIN Vital Signs 02/06/17 02/06/17 02/06/17 15:14 19:23 19:43 Temperature 98.7 F 98.9 F Pulse Rate 65 70 Respiratory 24 24 24 Rate Blood Pressure 100/46 97/52 (mmHg) O2 Sat by Pulse 94 92 Oximetry 02/07/17 02/07/17 04:34 07:37 Temperature 98.0 F 97.9 F Pulse Rate 65 65 Respiratory 28 18 Rate Blood Pressure 112/52 112/58 (mmHg) O2 Sat by Pulse 94 94 Oximetry Oxygen Devices in Use Now: Nasal Cannula Appearance: Alert, partly up in bed. In fair spirits. Looks comfortable, no longer tachypneic. Eyes: No Scleral Icterus Neck: NL Appearance and Movements; NL JVP, No Thyroid Enlargement, Masses Respiratory: Symmetrical Chest Expansion and Respiratory Effort, Clear to Auscultation, Clear to Percussion Cardiovascular: NL Sounds; No Murmurs; No JVD, RRR, No Edema, - Extremities: No Edema, No Clubbing, Cyanosis, - Skin: No Rash or Ulcers, No Nodules or Sclerosis, - Neurological: Alert and Oriented x 3, NL Sensation Result Diagrams: 02/05/17 05:45 02/07/17 04:40 Assess/Plan/Problems-Billing Assessment: - Patient Problems (1) ESRD (end stage renal disease) Current Visit: Yes Status: Acute Code(s): N18.6 - END STAGE RENAL DISEASE SNOMED Code(s): 89378645 Comment: HD catheter L chest. HD done 02/06 next planned 02/08. Plan for peritoneal dialysis catheter soon. Discussed with Dr. Guajardo 02/07. (2) Hypothyroid Current Visit: Yes Status: Acute Code(s): E03.9 - HYPOTHYROIDISM, UNSPECIFIED SNOMED Code(s): 83321795 Comment: TSH add on 12.39. Levothyroxine dose increased 02/07. (3) Third degree heart block Current Visit: No Status: Acute Priority: High Onset Date: 01/19/15 Code (s): I44.2 - ATRIOVENTRICULAR BLOCK, COMPLETE SNOMED Code(s): 52995943 Comment: PPM in place. (4) HTN (hypertension) Current Visit: Yes Status: Acute Code(s): I10 - ESSENTIAL (PRIMARY) HYPERTENSION SNOMED Code(s): 04022984 Comment: Continue amlodipine and atenolol. (5) Weakness Current Visit: Yes Status: Acute Code(s): R53.1 - WEAKNESS SNOMED Code(s) : 00910061 Comment: PT and nutrition consults requested 02/07.
[2017-02-07] MEDS: guaiFENesin LIQ* 100 MG/5 ML UDC PO SCH ×4 (10:13→20:18)
[2017-02-07] MEDS: Atenolol TAB* 25 MG PO SCH ×2 (10:13→20:19)
[2017-02-07] MEDS: Omeprazole CAP* 20 MG PO SCH (10:13)
[2017-02-07] MEDS: Sodium Citrate/Citric Acid* 15 ML UDC PO SCH ×4 (10:38→20:18)
[2017-02-07] MEDS: amLODIPine TAB* 5 MG PO SCH (20:19)
[2017-02-08] MEDS: Levothyroxine TAB* 125 MCG TAB PO SCH (05:27)
[2017-02-08] MEDS: Heparin VIAL(*) 5000 UNITS/ML VIAL (FIVE THOUSAND) SUBCUT SCH ×3 (05:27→21:22)
[2017-02-08] MEDS: Sodium Citrate/Citric Acid* 15 ML UDC PO SCH ×2 (09:20→21:12)
[2017-02-08] MEDS: Omeprazole CAP* 20 MG PO SCH (09:21)
[2017-02-08] MEDS: Atenolol TAB* 25 MG PO SCH ×2 (09:21→21:13)
[2017-02-08] MEDS: guaiFENesin LIQ* 100 MG/5 ML UDC PO SCH ×3 (09:21→21:15)
[2017-02-08] MEDS ORDERED: ALPRAZolam TAB* 0.5 MG PO PRN (10:58)
[2017-02-08] MEDS ORDERED: Sertraline* 25 MG TAB PO SCH (11:00)
--- NOTE | 2017-02-08 11:58 | PN ---
Subjective Date of Service: 02/08/17 Interval History: C.O SOB, ANDREW, likes having choice of FM or nasal canula. He refused alprazolam and sertraline. Objective Active Medications: Acetaminophen (Tylenol Tab*) 650 mg PO Q4H PRN PRN Reason: FEVER/PAIN Alprazolam (Xanax Tab*) 0.25 mg PO Q6H PRN PRN Reason: ANXIETY Amlodipine Besylate (Norvasc Tab*) 10 mg PO BEDTIME [facility] Last Admin: 02/07/17 20:19 Dose: 10 mg Atenolol (Tenormin Tab*) 12.5 mg PO BID [facility] Last Admin: 02/08/17 09:21 Dose: Not Given Citric Acid/Sodium Citrate (Bicitra*) 15 ml PO TID [facility] Last Admin: 02/08/17 09:20 Dose: 15 ml Guaifenesin (Robitussin*) 10 ml PO QID [facility] Last Admin: 02/08/17 09:21 Dose: Not Given Heparin Sodium (Porcine) (Heparin Vial(*)) 5,000 units SUBCUT Q8HR [facility] Last Admin: 02/08/17 05:27 Dose: 5,000 units Levothyroxine Sodium (Synthroid Tab*) 125 mcg PO 0600 [facility] Last Admin: 02/08/17 05:27 Dose: 125 mcg Omeprazole (Prilosec Cap*) 20 mg PO DAILY [facility] Last Admin: 02/08/17 09:21 Dose: Not Given Oxycodone/Acetaminophen (Percocet 5/325 Tab*) 1 tab PO Q4H PRN PRN Reason: PAIN Sertraline HCl (Zoloft*) 25 mg PO DAILY [facility] Vital Signs 02/07/17 02/07/17 02/07/17 15:26 18:42 19:37 Temperature 98.0 F 97.6 F Pulse Rate 66 66 Respiratory 22 22 16 Rate Blood Pressure 117/62 123/62 (mmHg) O2 Sat by Pulse 94 94 Oximetry 02/07/17 02/07/17 02/08/17 20:00 23:29 07:43 Temperature 97.7 F 97.9 F Pulse Rate 64 63 Respiratory 18 26 22 Rate Blood Pressure 119/65 105/56 (mmHg) O2 Sat by Pulse 94 95 Oximetry 02/08/17 08:00 Temperature Pulse Rate Respiratory 30 Rate Blood Pressure (mmHg) O2 Sat by Pulse Oximetry Oxygen Devices in Use Now: Simple Face Mask Appearance: Alert, supine in bed. Looks discouraged, otherwise looks comfortable. Neck: NL Appearance and Movements; NL JVP, No Thyroid Enlargement, Masses Respiratory: Symmetrical Chest Expansion and Respiratory Effort, Clear to Auscultation, Clear to Percussion Cardiovascular: NL Sounds; No Murmurs; No JVD, RRR, No Edema, - Extremities: No Edema, No Clubbing, Cyanosis, - Skin: No Rash or Ulcers, No Nodules or Sclerosis, - Neurological: Alert and Oriented x 3, NL Sensation Result Diagrams: 02/05/17 05:45 02/07/17 04:40 Assess/Plan/Problems-Billing Assessment: - Patient Problems (1) ESRD (end stage renal disease) Current Visit: Yes Status: Acute Code(s): N18.6 - END STAGE RENAL DISEASE SNOMED Code(s): 66293516 Comment: HD catheter L chest. Second HD planned 02/08. Plan for peritoneal dialysis catheter soon. Discussed with Dr. Guajardo 02/07. Reduce bicitra due to anorexia and poor caloric intake. CO2 22 on 02/07/17. (2) Hypothyroid Current Visit: Yes Status: Acute Code(s): E03.9 - HYPOTHYROIDISM, UNSPECIFIED SNOMED Code(s): 64959334 Comment: TSH add on 12.39. Levothyroxine dose increased 02/07. (3) Third degree heart block Current Visit: No Status: Acute Priority: High Onset Date: 01/19/15 Code (s): I44.2 - ATRIOVENTRICULAR BLOCK, COMPLETE SNOMED Code(s): 81369126 Comment: PPM in place. (4) HTN (hypertension) Current Visit: Yes Status: Acute Code(s): I10 - ESSENTIAL (PRIMARY) HYPERTENSION SNOMED Code(s): 36953280 Comment: Continue amlodipine and atenolol. (5) Weakness Current Visit: Yes Status: Acute Code(s): R53.1 - WEAKNESS SNOMED Code(s) : 62349901 Comment: OT consult, PMRU eval requested.
[2017-02-08 13:31] LABS: M tuberculosis by Quantiferon Indeterminate (Negative); TB Ag minus Nil Result -0.01 IU/mL
--- NOTE | 2017-02-08 14:18 | RAD ---
Indication: Shortness of breath. Single frontal view of the chest performed at 1355 hours was reviewed. Comparison is made with previous exam dated February 05, 2017. Cardiomegaly is noted. Central line is in place. Left pleural effusion is noted. Right lung field is clear. IMPRESSION: LEFT PLEURAL EFFUSION. CENTRAL LINE IN PLACE. PACEMAKER LEADS IN PLACE.
[2017-02-08] MEDS ORDERED: Iodixanol* (CONTRAST) 320 MG/ML 100 ML SDV IV ONE (15:00)
[2017-02-08 15:13] LABS: Hematocrit 30 % (42-52); Hemoglobin 9.7 g/dl (14.0-18.0); Mean Corpuscular HGB Conc 33 g/dl (31-36); Mean Corpuscular Hemoglobin 29 pg (27-31); Mean Corpuscular Volume 88 fL (80-94); Mean Platelet Volume 9 um3 (7.4-10.4); Red Cell Distribution Width 14 % (10.5-15); White Blood Count 28.1 10^3/ul (3.5-10.8)
[2017-02-08 15:32] LABS: Troponin I 0.06 ng/mL (<0.04)
[2017-02-08] MEDS ORDERED: Epoetin Alfa* 10,000 UNITS/ML VIAL IV ONE (16:00)
[2017-02-08] MEDS ORDERED: Heparin DIALYSIS ONLY(*) 1,000 UNITS/ML VIAL DIALYSIS ONE (16:00)
--- NOTE | 2017-02-08 16:51 | RAD ---
Indication: Shortness of breath, hypoxia and hypotension. Contrast: Administered 77.2 ml of VISIPAQUE 320 mg/ml CTA of the chest was performed after IV contrast administration. Coronal and sagittal reconstructed images were obtained. The pulmonary arterial tree is well opacified. No filling defects are noted to suggest pulmonary embolus. Aorta demonstrates no aneurysmal dilatation. No evidence of aortic dissection is noted. Bilateral pleural effusions are noted of moderate size worse on the left than on the right. Bibasilar atelectasis is noted. No pulmonary nodules are identified. No obvious mediastinal or hilar adenopathy is noted. There is ascites noted. There is high density material in the serosal surface of the perihepatic ascites. This may represent peritoneal metastases. Additional low density lesions on the liver consistent with hepatic metastasis is noted. Extensive peritoneal studding is noted consistent with peritoneal carcinomatosis.. IMPRESSION: No evidence of pulmonary embolus is noted. Bilateral pleural effusions worse on the left than on the right. Hepatic metastasis, and likely peritoneal studding and metastasis with moderate size ascites.
[2017-02-08 17:09] LABS: BUN/Creatinine Ratio 12.7 (8-20); Calcium 8.3 mg/dL (8.6-10.3); EGFR African American 14.3 (>60); EGFR Non-African American 11.1 (>60); Potassium 3.5 mmol/L (3.5-5.0)
[2017-02-08] MEDS: amLODIPine TAB* 5 MG PO SCH (21:14)
--- NOTE | 2017-02-09 05:03 | PN ---
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 He dropped his blood pressure into the 60s. He was about 15 minutes into treatment and no significant fluids had been taken. He was then given a bolus of saline. His pressure came back up, and dialysis was continued only to have a recurrence of the event. He is breathing a little hard right now. He is on 5 L of oxygen. He seems to be mentating quite well. He has a regular rate. His current blood pressure is 116/62. He is not edematous. I discussed the case at length with Dr. Peacock. There is the possibility he could have asymmetric septal hypertrophy as a culprit with this. We are going to have to inspect the recent echocardiogram report closely in that regard. If that is true, he would benefit from beta-blockade. In addition, I am a little reluctant to proceed along with hemodialysis at this point and I think we should get a peritoneal catheter placed via local anesthesia and then proceed on with peritoneal dialysis. I have discussed this with Dr. Card. [id number]/[facility] #: [id number] CATHY
[2017-02-09] MEDS: Levothyroxine TAB* 125 MCG TAB PO SCH (05:34)
[2017-02-09] MEDS: Heparin VIAL(*) 5000 UNITS/ML VIAL (FIVE THOUSAND) SUBCUT SCH ×3 (05:34→22:22)
[2017-02-09] MEDS: Atenolol TAB* 25 MG PO SCH ×2 (09:58→20:52)
[2017-02-09] MEDS: Omeprazole CAP* 20 MG PO SCH (10:02)
[2017-02-09] MEDS: guaiFENesin LIQ* 100 MG/5 ML UDC PO SCH ×4 (10:02→20:53)
[2017-02-09] MEDS: Sodium Citrate/Citric Acid* 15 ML UDC PO SCH ×2 (10:03→20:53)
--- NOTE | 2017-02-09 12:18 | RAD ---
INDICATION: CT pulmonary angiogram of one day prior remarkable for probable hepatic metastasis peritoneal carcinomatosis. COMPARISON: CT pulmonary angiogram of one day prior. February 05, 2017 RIGHT upper quadrant ultrasound. TECHNIQUE: Multidetector CT images were obtained from the lung bases to the ischial tuberosities. Oral contrast administered. Assessment of the visceral limited without IV contrast. REPORT: Small RIGHT and moderate LEFT dependent pleural effusions with proportional basilar atelectasis. Coronary artery calcifications. Negative for pericardial effusion. 4.6 cm RIGHT anterior hepatic segment, 2.9 cm LEFT medial hepatic segment, and 4.7 cm LEFT lateral hepatic segment hypodense hepatic lesions are identified. The liver is small measuring 11 cm cephalocaudal remarkable for subtle nodular surface contour. No CT abnormality of the gallbladder. Moderately atrophic pancreas without suspicious CT finding. Diminutive size spleen. Negative for CT abnormality of the upper GI or small bowel. The appendix is not definitively visualized. Severe colonic diverticulosis primarily at the sigmoid colon without compelling stigmata of acute diverticulitis. Moderately large volume of denser than water ascites. Extensive reticular densities at the peritoneal fat and omentum highly suspicious for peritoneal carcinomatosis. No dominant mesenteric or omental mass evident. Negative for free air or hernias. Negative for adrenal lesions. Severe bilateral renal cortical atrophy. Small bilateral renal cortical cysts. No compelling suspicious focal renal lesions. Negative for hydronephrosis. No suspicious finding along the course of the nondilated ureters. Residual pyelographic phase contrast at the urinary bladder from CT pulmonary angiogram of one day prior. Negative for lymphadenopathy. Atherosclerotic calcification of normal diameter abdominal aorta. Partially decompressed IVC suggesting lower volume state. RIGHT hip prosthesis. Multiple Schmorl node endplate herniations at the thoracic and lumbar sacral spine. No suspicious focal osseous lesions evident. IMPRESSION: 1. Limited exam without IV contrast. Multiple focal hepatic lesions suspicious for primary neoplasm or metastasis given the complete constellation of findings including stigmata of extensive peritoneal carcinomatosis. Moderately large volume of ascites. Consider diagnostic paracentesis. If this proves nondiagnostic consider image guided omental biopsy. 2. Cirrhotic liver morphology. 3. Diminutive spleen. 4. Atrophic kidneys. Residual pyelographic phase contrast at the urinary bladder from CT of one day prior. 5. Probable low volume state.
--- NOTE | 2017-02-09 14:43 | PN ---
Subjective Date of Service: 02/09/17 Interval History: No new c/o. Very weak, very poor appetite. Objective Active Medications: Acetaminophen (Tylenol Tab*) 650 mg PO Q4H PRN PRN Reason: FEVER/PAIN Alprazolam (Xanax Tab*) 0.25 mg PO Q6H PRN PRN Reason: ANXIETY Atenolol (Tenormin Tab*) 12.5 mg PO BID [facility] Last Admin: 02/09/17 09:58 Dose: 12.5 mg Citric Acid/Sodium Citrate (Bicitra*) 15 ml PO BID [facility] Last Admin: 02/09/17 10:03 Dose: 15 ml Guaifenesin (Robitussin*) 10 ml PO QID [facility] Last Admin: 02/09/17 10:02 Dose: Not Given Heparin Sodium (Porcine) (Heparin Vial(*)) 5,000 units SUBCUT Q8HR [facility] Last Admin: 02/09/17 05:34 Dose: 5,000 units Levothyroxine Sodium (Synthroid Tab*) 125 mcg PO 0600 [facility] Last Admin: 02/09/17 05:34 Dose: 125 mcg Midodrine (Midodrine (Nf)) 5 mg PO MoWeFr@0900 [facility] PRN Reason: Protocol Omeprazole (Prilosec Cap*) 20 mg PO DAILY [facility] Last Admin: 02/09/17 10:02 Dose: Not Given Oxycodone/Acetaminophen (Percocet 5/325 Tab*) 1 tab PO Q4H PRN PRN Reason: PAIN Vital Signs 02/08/17 02/08/17 02/08/17 15:40 19:40 20:00 Temperature 97.9 F 99.2 F Pulse Rate 72 85 Respiratory 24 12 20 Rate Blood Pressure 114/73 134/53 (mmHg) O2 Sat by Pulse 97 99 Oximetry 02/08/17 02/08/17 02/08/17 20:19 23:39 23:44 Temperature 98.6 F 98.3 F 98.3 F Pulse Rate 70 68 68 Respiratory 20 20 20 Rate Blood Pressure 110/61 93/72 93/72 (mmHg) O2 Sat by Pulse 94 94 94 Oximetry 02/09/17 02/09/17 02/09/17 04:07 08:00 08:02 Temperature 98.3 F 99.5 F Pulse Rate 64 63 Respiratory 28 28 24 Rate Blood Pressure 105/53 104/61 (mmHg) O2 Sat by Pulse 95 96 Oximetry Oxygen Devices in Use Now: Simple Face Mask Appearance: Alert, partly up in bed. In fair spirits. SL tachypneic, otherwise looks comfortable. Eyes: No Scleral Icterus Extremities: No Edema, No Clubbing, Cyanosis, - Skin: No Rash or Ulcers, No Nodules or Sclerosis, - Neurological: Alert and Oriented x 3, NL Sensation Result Diagrams: 02/08/17 14:30 02/08/17 14:30 Assess/Plan/Problems-Billing Assessment: - Patient Problems (1) ESRD (end stage renal disease) Current Visit: Yes Status: Acute Code(s): N18.6 - END STAGE RENAL DISEASE SNOMED Code(s): 40081308 Comment: HD catheter L chest. Third HD planned 02/10. Amlodipine d/c'd, will give midodrine 5 mg before each HD to reduce hypotension during HD. (2) Hypothyroid Current Visit: Yes Status: Acute Code(s): E03.9 - HYPOTHYROIDISM, UNSPECIFIED SNOMED Code(s): 99498127 Comment: TSH add on 12.39. Levothyroxine dose increased 02/07. (3) Third degree heart block Current Visit: No Status: Acute Priority: High Onset Date: 01/19/15 Code (s): I44.2 - ATRIOVENTRICULAR BLOCK, COMPLETE SNOMED Code(s): 15138474 Comment: PPM in place. (4) HTN (hypertension) Current Visit: Yes Status: Acute Code(s): I10 - ESSENTIAL (PRIMARY) HYPERTENSION SNOMED Code(s): 64270086 Comment: Continue amlodipine and atenolol. (5) Weakness Current Visit: Yes Status: Acute Code(s): R53.1 - WEAKNESS SNOMED Code(s) : 20525975 Comment: OT consult, PMRU eval requested. (6) Hepatic metastases Current Visit: Yes Status: Acute Code(s): C78.7 - SECONDARY MALIG NEOPLASM OF LIVER AND INTRAHEPATIC BILE DUCT SNOMED Code(s): 92894788 Comment: Multiple hepatic mets, peritoneal caking, mod ascites. Awaiting paracetesis for tissue dx. On 02/09 I have spoke to Jacey Rodríguez, Ryan, Casandra Kelly, and Carlitos. Consult requested from Dr. Urbina/ Fifi.
[2017-02-10] MEDS: Levothyroxine TAB* 125 MCG TAB PO SCH (07:25)
[2017-02-10] MEDS: Heparin VIAL(*) 5000 UNITS/ML VIAL (FIVE THOUSAND) SUBCUT SCH ×3 (07:25→21:28)
[2017-02-10] MEDS: guaiFENesin LIQ* 100 MG/5 ML UDC PO SCH ×4 (07:51→20:25)
[2017-02-10] MEDS: Omeprazole CAP* 20 MG PO SCH (07:52)
--- NOTE | 2017-02-10 08:38 | PN ---
Subjective Date of Service: 02/10/17 Interval History: Little subj change. Very poor appetite. ANDREW. Objective Active Medications: Acetaminophen (Tylenol Tab*) 650 mg PO Q4H PRN PRN Reason: FEVER/PAIN Alprazolam (Xanax Tab*) 0.25 mg PO Q6H PRN PRN Reason: ANXIETY Atenolol (Tenormin Tab*) 12.5 mg PO BID [facility] Last Admin: 02/09/17 20:52 Dose: 12.5 mg Citric Acid/Sodium Citrate (Bicitra*) 15 ml PO BID [facility] Last Admin: 02/09/17 20:53 Dose: 15 ml Guaifenesin (Robitussin*) 10 ml PO QID [facility] Last Admin: 02/10/17 07:51 Dose: Not Given Heparin Sodium (Porcine) (Heparin Vial(*)) 5,000 units SUBCUT Q8HR [facility] Last Admin: 02/10/17 07:25 Dose: 5,000 units Levothyroxine Sodium (Synthroid Tab*) 125 mcg PO 0600 [facility] Last Admin: 02/10/17 07:25 Dose: 125 mcg Midodrine (Midodrine (Nf)) 5 mg PO MoWeFr@0900 [facility] PRN Reason: Protocol Omeprazole (Prilosec Cap*) 20 mg PO DAILY [facility] Last Admin: 02/10/17 07:52 Dose: Not Given Oxycodone/Acetaminophen (Percocet 5/325 Tab*) 1 tab PO Q4H PRN PRN Reason: PAIN Vital Signs 02/09/17 02/09/17 02/09/17 15:30 20:00 20:21 Temperature 97.9 F 97.9 F Pulse Rate 64 65 Respiratory 20 30 30 Rate Blood Pressure 106/60 121/62 (mmHg) O2 Sat by Pulse 93 95 Oximetry 02/09/17 02/10/17 02/10/17 22:10 03:13 07:36 Temperature 98.3 F 97.6 F 97.9 F Pulse Rate 66 62 62 Respiratory 24 28 16 Rate Blood Pressure 115/59 103/55 107/52 (mmHg) O2 Sat by Pulse 94 95 94 Oximetry Oxygen Devices in Use Now: Simple Face Mask Appearance: Alert, supine in bed. In fair spirits. Some tachypnea, otherwise looks comfortable. Eyes: No Scleral Icterus Extremities: No Edema, No Clubbing, Cyanosis, - Skin: No Rash or Ulcers, No Nodules or Sclerosis, - Neurological: Alert and Oriented x 3, NL Sensation Result Diagrams: 02/08/17 14:30 02/08/17 14:30 Assess/Plan/Problems-Billing Assessment: - Patient Problems (1) ESRD (end stage renal disease) Current Visit: Yes Status: Acute Code(s): N18.6 - END STAGE RENAL DISEASE SNOMED Code(s): 10935610 Comment: HD catheter L chest. Third HD planned 02/10, may be delayed to 02/11-- I spoke with the dialysis nurse. Amlodipine d/c'd, will give midodrine 5 mg before each HD to reduce hypotension during HD. (2) Hypothyroid Current Visit: Yes Status: Acute Code(s): E03.9 - HYPOTHYROIDISM, UNSPECIFIED SNOMED Code(s): 83778097 Comment: TSH add on 12.39. Levothyroxine dose increased 02/07. (3) Third degree heart block Current Visit: No Status: Acute Priority: High Onset Date: 01/19/15 Code (s): I44.2 - ATRIOVENTRICULAR BLOCK, COMPLETE SNOMED Code(s): 82610471 Comment: PPM in place. (4) HTN (hypertension) Current Visit: Yes Status: Acute Code(s): I10 - ESSENTIAL (PRIMARY) HYPERTENSION SNOMED Code(s): 64979609 Comment: Amlodipine and atenolol both d/c'd. Midodrine 5 mg before each dialysis. BP 107/52 02/10 07:36. (5) Weakness Current Visit: Yes Status: Acute Code(s): R53.1 - WEAKNESS SNOMED Code(s) : 73851212 Comment: May need Hospice services. (6) Hepatic metastases Current Visit: Yes Status: Acute Code(s): C78.7 - SECONDARY MALIG NEOPLASM OF LIVER AND INTRAHEPATIC BILE DUCT SNOMED Code(s): 88434700 Comment: Multiple hepatic mets, peritoneal caking, mod ascites. Paracetesis for pathologic dx and for palliation schedule for 9/ AM. I spoke with Dr. Calix who will see patient 02/10.
--- NOTE | 2017-02-10 10:14 | SURGPN ---
Brief Operative Note - Surgery Procedures: Procedures OPERATIVE REPORT PRE-OP: Ascites, etiology unknown POST-OP: Same PROCEDURE: Paracentesis, 3.5 liters of straw colored fluid drained and collected. SURGEON: MD Callum ANESTHESIA:Local ASST: None IVF: none EBL: min SPECIMEN: Fluid for cell counts, chemistries, cytology and culture DRAIN: none WOUND CLASS: One COMPLICATIONS: none TO PACU
[2017-02-10] MEDS: Sodium Citrate/Citric Acid* 15 ML UDC PO SCH ×2 (10:30→20:31)
[2017-02-10] MEDS ORDERED: CMCS Midodrine (NF) 5 MG TAB PO SCH (12:57)
--- NOTE | 2017-02-11 01:26 | CONS ---
CC: Tavo Zimmerman MD; Kwaku Peacock MD * PALLIATIVE CARE CONSULTATION: DATE OF CONSULT: 02/10/17 REFERRING PROVIDER: Kwaku Peacock MD HOSPITAL COURSE: This is an 81-year-old male with a past medical history of CKD , awaiting dialysis and complete heart block, status post pacemaker who presented to the emergency room on 02/04/17 with shortness of breath. On admission, it was felt that his shortness of breath was related to his end- stage renal disease and was volume overloaded and requiring dialysis. He was started on high dose of diuretics and Dr. Vogel was consulted on admission. The patient had dialysis catheter placed for anticipation of dialysis. He continued to remain short of breath throughout his admission. He did have a liver ultrasound on 02/05/17 that showed cirrhotic liver, hepatic mass measuring 4.4 cm in size. Given the presence of cirrhosis, this is concerning for hepatic neoplasm including hepatocellular carcinoma, mild gallbladder wall thickening likely reactive secondary to hepatic information and also noted to have ascites. His chest x-ray also on admission showed low lung volumes, no active cardiopulmonary disease. Due to his persistent shortness of breath, he did have a CT of the chest that showed no evidence of a PE, bilateral pleural effusions worsening on the left than on the right, hepatic metastasis and likely peritoneal studding in the past with some moderate sized ascites. He had abdominal pelvic CT on the that showed multiple focal hepatic lesions suspicious for primary neoplasm or metastasis given the complete constellation of findings including stigmata of extensive peritoneal carcinomatosis, moderately large volume of ascites, consider diagnostic paracentesis. The patient did undergo paracentesis with biopsy this morning, his breathing is better, but he is still requiring 8 L via OxyMask. On my encounter, the patient and his are at the bedside. He states that he was playing tennis up until a month ago and since then, he has become more dyspneic with decreased p.o., anorexia and noted to have abdominal distention. Currently, he is denying any pain or discomfort and states that he does not feel dyspneic at rest. No issues with constipation or changes in his bowels. No nausea or vomiting. Otherwise, review of systems is negative. His initial pathology is negative for malignant cells. We discussed palliative care options at length. He initially was not going wait for the biopsy results and was planning to just go home with hospice; however, he would like to get the results of the biopsy before he makes any further decisions. We discussed resources at home that hospice could provide. We also discussed if he chooses to do hospice if he would want to continue on dialysis or not. We also spoke about the second page of the MOLST that was not yet completed and he would like to be a do not intubate as well in addition to a DNR. This is quite a significant change for somebody who is playing tennis up until a month ago, was completely independent of his ADLs and has taken some time to process and make decisions. Otherwise, remaining review of systems is negative. PAST MEDICAL HISTORY: 1. CKD stage 5, still waiting to undergo dialysis. 2. History of hypertension. 3. Hypothyroidism. 4. History of complete heart block, status post pacemaker placement. 5. History of basal cell carcinoma PAST SURGICAL HISTORY: 1. History of pacemaker placement. 2. Hernia repair. 3. Right total hip arthroplasty. INPATIENT MEDICATIONS: 1. Alprazolam 0.25 mg p.o. q.6 hours as needed for anxiety. 2. Tylenol 650 mg every 4 hours as needed. 3. Heparin 5000 unit subcu t.i.d. 4. Synthroid 105 mcg p.o. daily. 5. Midodrine 5 mg q.40 hours as needed. 6. Omeprazole 20 mg daily. 7. Bicitra 15 mL p.o. b.i.d. 8. Percocet 1 tab p.o. q.4 hours as needed. 9. Guaifenesin 10 mL p.o. 4 times a day. ALLERGIES: No known drug allergies. SOCIAL HISTORY: Prior to this admission, the patient was living at home, independent of his ADLs, living with his , who is his healthcare proxy, Viviana Dockery. 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 They have two grown children who do not live locally. No history of tobacco, alcohol or illicit drug use. REVIEW OF SYSTEMS: A 14-point review of systems was reviewed. Pertinent positives and negatives as mentioned in the HPI otherwise negative. PHYSICAL EXAM: Vitals: Temp 97.6, pulse rate 62, respiratory rate 18, oxygen saturation 97% on 8 L, blood pressure 108/57. General: In no acute distress, elderly male with his at the bedside. HEENT: Head normocephalic. Pupils equal and reactive, anicteric. Oropharynx: Mucous membranes are moist. Neck: Supple, no lymphadenopathy. Cardiac: Regular rate and rhythm. Soft systolic murmur heard throughout. Respiratory: Diminished breath sounds, no wheeze, rhonchi or rales. Abdomen: Some mild distension, soft and nontender. Extremities: No clubbing, cyanosis, or edema, +1 DPs. Neurologic: Alert and oriented x3. No focal neurologic deficits. DIAGNOSTIC STUDIES/LAB DATA: White count 28.1, hemoglobin 9.7, hematocrit 30, platelets 373. INR is 1.23, sodium 132, potassium 3.5, chloride 86, bicarb 30, BUN 64, creatinine 5.03, glucose 130, troponin 0.06, albumin of 2.6, TSH 12.39. Radiographic data as mentioned in the HPI. ASSESSMENT: This is an 81-year-old male with stage 5 chronic kidney disease who presented to the emergency room on 02/04/17 presenting with shortness of breath, found to have a significant amount of ascites with abnormal findings on CAT scan with hepatic lesions and question of peritoneal carcinomatosis. His preliminary peritoneal fluid is negative for malignancy, but need to await further special staining results. He is still quite dyspneic requiring 8 L via OxyMask. He did get 3 L taken off the paracentesis, which they may consider weaning him off the oxygen to see how he does. He has not had an echocardiogram , which may be a source of his respiratory distress and asked to follow up with Dr. Peacock regarding getting an echocardiogram. We did complete his MOLST form that he is now a DNR/DNI. I think depending on further studies of his peritoneal fluid, we will determine if he is going to go home with hospice and we are awaiting those for the results. Patient is aware that he will not be able to continue dialysis if he does enroll into hospice. Our palliative care team will be following closely providing family with information and supportive care. Thank you for this consultation. I will follow along with you. PATIENT TIME: Greater than 100 minutes spent doing the consultation, more than half time was spent in direct patient contact. [id number]/[facility] #: [id number] CATHY
--- NOTE | 2017-02-11 02:59 | CONS ---
CC: Dr. Guajardo; Dr. Zimmerman; Dr. Nolen * MEDICAL ONCOLOGY CONSULTATION NOTE: DATE OF CONSULT: 02/10/17 DATE OF ADMISSION: 02/04/17 HISTORY OF PRESENT ILLNESS: Michael Dockery is an 81-year-old male with a longstanding history of chronic kidney disease. Creatinine has been rising recently and had been in the 3 to 4 range through 2012, then in the 4 to 5.5 range until December of 2016. It recently had been rising rapidly and reached 9.28 at the time of admission. Consideration had been for placement of a peritoneal dialysis catheter, but the patient developed increasing shortness of breath with minimal exertion. As recently as 5 to 6 weeks ago, he was still able to play double tennis, although not moving about huge amounts in the court per his . He spent one month in [place] in November and noticed marked decreased ability to walk and had to rest frequently during that period of time. He recently had been maintaining his weight, but is developing increasing abdominal distention with a need to let out his belt buckle and noticed what in retrospect turned out to be ascites and some mild ankle edema. He developed decreased ability to eat and also increasing shortness of breath. He was admitted to the hospital on 02/04/17 with a plan for urgent dialysis. Dialysis catheter was placed for hemodialysis by Dr. Nolen on 02/05/17 and the patient has undergone dialysis treatments x2 on 02/06/17 and 02/08/17 and was scheduled for a third dialysis treatment today. Because of increasing symptoms , the patient did have a CTA of the chest on 02/08/17. This revealed bilateral pleural effusions and evidence of hepatic metastasis and likely peritoneal studding with moderate ascites. The patient then underwent a CT of the abdomen and pelvis on 02/09/17, which revealed multiple hepatic lesions, multiple areas of peritoneal carcinomatosis and omental involvement. No adenopathy was noted. Both kidneys were quite atrophic. The patient was discussed with Dr. Urbina in our office yesterday and arrangements were made for a paracentesis this morning. This was then just before I am seeing the patient, 3.5 L were removed and the patient reports feeling considerably better in terms of both breathing and abdominal fullness that he had for sometime. Following my initial discussion with the patient and his this morning, results of the paracentesis have returned and the patient was seen back this evening to discuss results. Paracentesis of 3.5 L revealed only benign cells and no obvious malignancy by cytology. PAST MEDICAL HISTORY: 1. Severe chronic kidney failure, undergoing dialysis. 2. Hypertension. 3. Hypothyroidism. 4. Status post complete heart block with pacemaker. 5. Status post hernia repair. 6. Status post total hip replacement on the right. No ME or CVA or diabetes. MEDICATIONS AT THE TIME OF ADMISSION: Included: 1. Norvasc 10 mg. 2. Bicitra 15 cc 4 times a day. 3. Omeprazole 20 mg daily. 4. Lasix 80 mg daily. 5. Synthroid 100 mcg daily. 6. Atenolol 12.5 b.i.d. Medications at the present time in addition include: 1. Guaifenesin p.r.n. 2. Levothyroxine increased to 125 mcg. ALLERGIES: None. FAMILY HISTORY: No family history of any malignancies. SOCIAL HISTORY: The patient lives with his . He is retired. He is not a drinker or smoker. 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 REVIEW OF SYSTEMS: No recent fevers, sweats, chills or other signs of infection. No significant changes in weight. Appetite decreased as discussed above. Increasing shortness of breath with orthopnea. No nausea or vomiting. No significant change in bowel or bladder habits. No significant neurologic complaints. No skin lesions. Review of systems otherwise negative except for increasing fatigue. PHYSICAL EXAM: An 81-year-old male, in no acute distress. Vital Signs: Blood pressure 108/57, pulse 62, afebrile, O2 saturation 97% on 8 L. However, he does take the oxygen off and feels much better with his breathing now that he has had the paracentesis performed. HEENT: PERRL. EOMI. No erythema or exudate. No scleral icterus. No palpable cervical, supraclavicular, or axillary adenopathy. Lungs: Decreased breath sounds at the bases without rales , wheezes, or rhonchi. Heart: Regular rate and rhythm without murmurs, rubs, or gallops. Abdomen: Minimally distended, nontender. No masses or organomegaly. Positive bowel sounds. Extremities: Trace pitting edema bilaterally. Neurologic Exam: The patient is alert and oriented x3. No gross focal deficits. DIAGNOSTIC STUDIES/LAB DATA: CBC: White count 28,100, hemoglobin 9.7, hematocrit 30, platelet count 373,000. Chemistry studies: Sodium 132, potassium 3.5, chloride 86, bicarb 30, BUN 64, creatinine 5.03, glucose 130, albumin of 2.6. IMPRESSION: An 81-year-old male with chronic renal failure that is progressing to the point of needing dialysis. He has recently been started on hemodialysis. During his workup, he has been found to have pleural effusions, ascites, liver lesions, omental caking, and masses studding the abdominal wall. This clearly represent a metastatic malignancy of unknown primary. He has expressed a clear desire to be DNR. Now that he has had dialysis on 2 occasions and had significant symptoms with it, he had originally decided to stop dialysis but after feeling much better with his breathing and his abdominal distention after 3.5 L of ascites removed, he does wish to have his dialysis performed again tomorrow. I have discussed with him that he almost certainly 99% sure has metastatic malignancy of some sort. It would be extremely difficult at his age and with underlying dialysis to treat this aggressively. It may be feasible given his underlying good performance status previously. However, he is not inclined to do so. He originally had talked about having hospice services. I explained to him this was essentially incongruous with having dialysis. His has left the hospital for the evening at this point. He wishes to discuss further with his whether he would want to continue dialysis past tomorrow. If he did, I believe I would hold off on hospice services, although consult could be obtained. It is certainly possible that we could obtain a diagnosis as to the etiology of his malignancy either a liver biopsy or biopsy of one of the omental masses. It is extremely unlikely that he would agree or want any specific therapy for this. He will consider this further after discussion with his . [id number]/[facility] #: [id number] CATHY
--- NOTE | 2017-02-11 03:25 | OP ---
CC: [facility]; Dr. Tavo Guajardo; Dr. Tavo Zimmerman; ALEXANDER, Attn: Dr. Trevin Calix, Oncology Service OPERATIVE REPORT: DATE OF OPERATION: 02/10/17 DATE OF : 37 SURGEON: Israel Nolen MD FIELD HAULER: None. ANESTHESIA: 1% lidocaine plain. PRE-OP DIAGNOSIS: Ascites with possible carcinomatosis. POST-OP DIAGNOSIS: Ascites with possible carcinomatosis. OPERATIVE PROCEDURE: Paracentesis with drainage of 3.5 L of serous yellow thin fluid. 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 Noted to have renal insufficiency and CAT scan of the chest, abdomen, and pelvis showed marked, large amount of ascites with concern for several liver masses. Paracentesis now to be performed for diagnostic as well as therapeutic purposes. The procedure was discussed with the patient and his and the risks, but not limited to, bleeding; infection; visceral injury, i.e., liver, spleen, or bowel; as well as discomfort. ESTIMATED BLOOD LOSS: Minimal. COMPLICATIONS: None. DRAINS: None. WOUND CLASSIFICATION: 1. FINDINGS: Large amount of yellow straw colored fluid, non-purulent, with no odor. Sent for cytology, culture, cell counts, and chemistries. DESCRIPTION OF PROCEDURE: Written informed consent was obtained. The abdomen was marked with indelible ink. Preoperative antibiotics were not administered and not indicated. The patient was placed in a slightly sitting upright supine position, slightly turned to the left. Initially, the ultrasound machine was placed on the left side of the abdominal wall in an area where there appeared to be a large amount of intra-abdominal fluid and this was marked with indelible ink. The area was then prepped and draped in usual sterile fashion. Time-out verification was completed. 1% lidocaine was infiltrated in the abdominal wall and a 21-gauge needle was then used to pass through the abdominal wall and I aspirated yellow straw fluid. A small amanda was made in the skin and drainage catheter over the needle was then inserted in the abdominal cavity until the fluid was aspirated. The catheter was passed in the abdominal wall and the needle was removed. The drainage tubing was attached to the suction bottle and about 3.5 L of straw colored fluid was then drained. Specimens were also taken for chemistries as well as culture cytology and all sent to the lab. Once the drainage had begun to slow and nothing further was drained, the catheter was then removed. Firm pressure was held and sterile dressing was applied. The patient tolerated the procedure well and was taken to the recovery room in stable condition. [id number]/[facility] #: [id number] MTDD
[2017-02-11] MEDS: Heparin VIAL(*) 5000 UNITS/ML VIAL (FIVE THOUSAND) SUBCUT SCH ×3 (05:51→21:27)
[2017-02-11] MEDS: Levothyroxine TAB* 125 MCG TAB PO SCH (05:54)
[2017-02-11] MEDS: Sodium Citrate/Citric Acid* 15 ML UDC PO SCH ×2 (11:18→19:51)
[2017-02-11] MEDS: Omeprazole CAP* 20 MG PO SCH (11:24)
[2017-02-11] MEDS: guaiFENesin LIQ* 100 MG/5 ML UDC PO SCH ×4 (11:24→19:51)
[2017-02-11] MEDS: CMC:Midodrine (NF) 5 MG TAB PO PRN (12:23)
[2017-02-11] MEDS ORDERED: Epoetin Alfa* 10,000 UNITS/ML VIAL IV ONE (13:00)
[2017-02-11 15:13] LABS: Total Protein, BF 4.4 g/dL
--- NOTE | 2017-02-11 16:20 | PN ---
Subjective Date of Service: 02/11/17 Interval History: Pt with continued significant improvement in his SOB after the 3.5L paracentesis yesterday. Intermittently had mask off overnight and throughout most of rounds conversation. Anxious and depressed, deciding on next steps but given significant symptom relief would like to pursue combination of HD and therapeutic paracentesis until can "put affairs in order" and decide on ultimate goals. Not interested in chemotherapy. Appetite still poor but did tolerate 1 egg last night. Objective Active Medications: Acetaminophen (Tylenol Tab*) 650 mg PO Q4H PRN PRN Reason: FEVER/PAIN Alprazolam (Xanax Tab*) 0.25 mg PO Q6H PRN PRN Reason: ANXIETY Citric Acid/Sodium Citrate (Bicitra*) 15 ml PO BID [facility] Last Admin: 02/11/17 11:18 Dose: 15 ml Guaifenesin (Robitussin*) 10 ml PO QID [facility] Last Admin: 02/11/17 15:38 Dose: Not Given Heparin Sodium (Porcine) (Heparin Vial(*)) 5,000 units SUBCUT Q8HR [facility] Last Admin: 02/11/17 05:51 Dose: 5,000 units Levothyroxine Sodium (Synthroid Tab*) 125 mcg PO 0600 [facility] Last Admin: 02/11/17 05:54 Dose: 125 mcg Midodrine (Midodrine (Nf)) 5 mg PO Q48HR PRN; Protocol PRN Reason: dialysis Last Admin: 02/11/17 12:23 Dose: 5 mg Omeprazole (Prilosec Cap*) 20 mg PO DAILY [facility] Last Admin: 02/11/17 11:24 Dose: Not Given Oxycodone/Acetaminophen (Percocet 5/325 Tab*) 1 tab PO Q4H PRN PRN Reason: PAIN Vital Signs 02/10/17 02/10/17 02/10/17 20:00 20:18 23:49 Temperature 97.5 F 98.1 F Pulse Rate 62 63 Respiratory 18 20 17 Rate Blood Pressure 108/48 106/54 (mmHg) O2 Sat by Pulse 96 93 Oximetry 02/11/17 02/11/17 06:04 08:00 Temperature 97.5 F Pulse Rate 64 Respiratory 17 14 Rate Blood Pressure 114/56 (mmHg) O2 Sat by Pulse 91 Oximetry Oxygen Devices in Use Now: Simple Face Mask - used intermittently Appearance: resting in bed, anxious but no acute distress, Eyes: No Scleral Icterus, PERRLA Ears/Nose/Mouth/Throat: NL Teeth, Lips, Gums, Mucous Membranes Moist Neck: NL Appearance and Movements; NL JVP Respiratory: Symmetrical Chest Expansion and Respiratory Effort, Clear to Auscultation Cardiovascular: NL Sounds; No Murmurs; No JVD, RRR, No Edema Abdominal: - - soft, nontender, disteneded but not tense. positive fluid wave. 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 Not considering chemotherapy but wanting therapeutic paracentesis/ hemodialysis for time being while getting affairs in order. - Patient Problems (1) Hepatic metastases Current Visit: Yes Status: Acute Code(s): C78.7 - SECONDARY MALIG NEOPLASM OF LIVER AND INTRAHEPATIC BILE DUCT SNOMED Code(s): 87671428 Comment: Multiple hepatic masses (4.7, 4.6, 2.9cm), peritoneal caking. Ascites (3.5L removed 02/10). Likely not a candidate for chemotherapy given ESRD now requiring HD and not wanting anyway. Hospice likely ultimate destination after "puts affairs in order" with symptomatic HD/paracentesis relief of acute respiratory failure. Markedly elevated ascites CEA 40137. Elevated ascites protein 4.4 and LDH 883. Will try to add on albumin and cell count. (2) ESRD (end stage renal disease) Current Visit: Yes Status: Acute Code(s): N18.6 - END STAGE RENAL DISEASE SNOMED Code(s): 97131680 Comment: HD catheter L chest. Third HD today 02/11 with better toleration of pressures with midodrine 5 mg. Next planned Tuesday 02/13. Given peritoneal carcinomatosis, peritoneal dialysis not likely an option. Appreciate Nephrology recs. (3) Acute respiratory failure with hypoxia Current Visit: Yes Status: Acute Code(s): J96.01 - ACUTE RESPIRATORY FAILURE WITH HYPOXIA SNOMED Code(s): 60352495 Comment: Likely secondary to volume overload given ascites/ESRD. Just had ECHO with Dr. Valverde as outpatient 02/01 demonstratingh EF 60-65% and moderate aortic stenosis so little utility repeating again now (order canceled). Symptomatically much improved with para, not truly needing any oxygen for long stretchs today. (4) SOB (shortness of breath) Current Visit: Yes Status: Acute Code(s): R06.02 - SHORTNESS OF BREATH SNOMED Code(s): 840108904 Comment: Likely from accumulation of fluid secondary to ESRD. For dialysis cath and hemodialysis. Then when stabilized for peritoneal dialysis cath. (5) HTN (hypertension) Current Visit: Yes Status: Acute Code(s): I10 - ESSENTIAL (PRIMARY) HYPERTENSION SNOMED Code(s): 96325324 Comment: home Amlodipine and atenolol both d/c'd. Midodrine 5 mg before each dialysis. (6) Hypothyroid Current Visit: Yes Status: Chronic Code(s): E03.9 - HYPOTHYROIDISM, UNSPECIFIED SNOMED Code(s): 60806075 Comment: TSH 12.39. Levothyroxine 125mcg (7) Anxiety Current Visit: Yes Status: Acute Code(s): F41.9 - ANXIETY DISORDER, UNSPECIFIED SNOMED Code(s): 13289560 Comment: ativan prn (8) DVT prophylaxis Current Visit: Yes Status: Acute Code(s): QJI1875 - SNOMED Code(s): 199898792 Comment: Heparin sq Status and Disposition: medicine inpatient. Likely ultimate hospice. Attending: Sadi Fowler
[2017-02-11 17:49] LABS: Body Fluid Total Cells Counted 100
[2017-02-11 17:50] LABS: Body Fluid Appearance Cloudy
[2017-02-11 17:53] LABS: Body Fluid WBC 435 /mcL
[2017-02-11 17:54] LABS: Technical Review Performed By MER0007
[2017-02-12] MEDS: Heparin VIAL(*) 5000 UNITS/ML VIAL (FIVE THOUSAND) SUBCUT SCH ×3 (05:28→20:05)
[2017-02-12] MEDS: Levothyroxine TAB* 125 MCG TAB PO SCH (05:28)
[2017-02-12] MEDS: guaiFENesin LIQ* 100 MG/5 ML UDC PO SCH ×4 (07:24→20:09)
[2017-02-12] MEDS: Omeprazole CAP* 20 MG PO SCH (07:25)
[2017-02-12] MEDS: Sodium Citrate/Citric Acid* 15 ML UDC PO SCH ×2 (07:28→20:05)
[2017-02-12 14:19] LABS: BUN/Creatinine Ratio 11.8 (8-20); Calcium 7.5 mg/dL (8.6-10.3); EGFR African American 9.6 (>60); EGFR Non-African American 7.5 (>60); Potassium 4.6 mmol/L (3.5-5.0)
--- NOTE | 2017-02-12 14:30 | PN ---
Subjective Date of Service: 02/12/17 Interval History: Blood pressure tolerated HD yesterday but no net fluid removed. Still using face mask. Leaning strongly towards hospice with continuation of therapeutic paracentesis prn and possibly HD. Does not want any biopsy or chemo. The stabbing pain in LLQ is barely noticeable. Appetite low - had couple bites cream of wheat Objective Active Medications: Acetaminophen (Tylenol Tab*) 650 mg PO Q4H PRN PRN Reason: FEVER/PAIN Alprazolam (Xanax Tab*) 0.25 mg PO Q6H PRN PRN Reason: ANXIETY Citric Acid/Sodium Citrate (Bicitra*) 15 ml PO BID [facility] Last Admin: 02/12/17 07:28 Dose: Not Given Guaifenesin (Robitussin*) 10 ml PO QID [facility] Last Admin: 02/12/17 13:34 Dose: Not Given Heparin Sodium (Porcine) (Heparin Vial(*)) 5,000 units SUBCUT Q8HR [facility] Last Admin: 02/12/17 13:36 Dose: 5,000 units Levothyroxine Sodium (Synthroid Tab*) 125 mcg PO 0600 [facility] Last Admin: 02/12/17 05:28 Dose: 125 mcg Midodrine (Midodrine (Nf)) 5 mg PO Q48HR PRN; Protocol PRN Reason: dialysis Last Admin: 02/11/17 12:23 Dose: 5 mg Omeprazole (Prilosec Cap*) 20 mg PO DAILY [facility] Last Admin: 02/12/17 07:25 Dose: Not Given Oxycodone/Acetaminophen (Percocet 5/325 Tab*) 1 tab PO Q4H PRN PRN Reason: PAIN Vital Signs 02/11/17 02/11/17 02/11/17 16:32 19:34 19:52 Temperature 98.2 F 98.5 F Pulse Rate 65 68 Respiratory 18 22 17 Rate Blood Pressure 96/68 108/57 (mmHg) O2 Sat by Pulse 93 92 Oximetry 02/12/17 02/12/17 02/12/17 02:35 07:31 07:45 Temperature 98.6 F 97.5 F Pulse Rate 67 68 Respiratory 16 20 20 Rate Blood Pressure 117/51 92/47 (mmHg) O2 Sat by Pulse 92 87 Oximetry 02/12/17 02/12/17 08:23 11:45 Temperature 98.3 F Pulse Rate 67 Respiratory 19 Rate Blood Pressure 104/52 (mmHg) O2 Sat by Pulse 92 93 Oximetry Oxygen Devices in Use Now: Simple Face Mask - used intermittently Appearance: chronically ill appearing. No labored breathing or acute distress Eyes: No Scleral Icterus, PERRLA Ears/Nose/Mouth/Throat: NL Teeth, Lips, Gums, - - dry lips Neck: NL Appearance and Movements; NL JVP, Trachea Midline Respiratory: Symmetrical Chest Expansion and Respiratory Effort, Clear to Auscultation Cardiovascular: NL Sounds; No Murmurs; No JVD, RRR Abdominal: - - soft, moderatly distended, not taunt, nontender. Postive fluid wave. No significant increase Extremities: No Edema, No Clubbing, Cyanosis Skin: No Rash or Ulcers, No Nodules or Sclerosis Neurological: Alert and Oriented x 3, NL Muscle Strength and Tone Result Diagrams: 02/08/17 14:30 02/12/17 13:52 Additional Lab and Data: Pleural Fluid CEA 40042, LDH 883, Total Protein 4.4 ABC 435, Neutrophil 23% Microbiology and Other Data: Microbiology BF Aerobic Culture Bottle Preliminary 02/12/17- 1033 ML No Growth Day 2 BF Anaerobic Culture Bottle Preliminary 02/12/17- 1033 ML No Growth Day 2 Assess/Plan/Problems-Billing Assessment: 81 year old 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 Not considering chemotherapy or even biopsy but wanting therapeutic paracentesis/hemodialysis for time being while getting affairs in order and likely in hospice. - Patient Problems (1) Hepatic metastases Current Visit: Yes Status: Acute Code(s): C78.7 - SECONDARY MALIG NEOPLASM OF LIVER AND INTRAHEPATIC BILE DUCT SNOMED Code(s): 55331391 Comment: Multiple hepatic masses (4.7, 4.6, 2.9cm), peritoneal caking. Ascites (3.5L removed 02/10). Likely not a candidate for chemotherapy given ESRD now requiring HD and not wanting anyway. Hospice likely ultimate destination after "puts affairs in order" with symptomatic HD/paracentesis relief of acute respiratory failure. Markedly elevated ascites CEA 28449. Elevated ascites protein 4.4 and LDH 883. Add on albumin is a send out and likely wont be back until 02/15. PMN ~100 (2) ESRD (end stage renal disease) Current Visit: Yes Status: Acute Code(s): N18.6 - END STAGE RENAL DISEASE SNOMED Code(s): 02495819 Comment: HD catheter L chest. Better toleration of pressures with midodrine 5 mg. Next planned Tuesday 02/13. Given peritoneal carcinomatosis, peritoneal dialysis not likely an option. Appreciate Nephrology recs. (3) Acute respiratory failure with hypoxia Current Visit: Yes Status: Acute Code(s): J96.01 - ACUTE RESPIRATORY FAILURE WITH HYPOXIA SNOMED Code(s): 33982731 Comment: Likely secondary to volume overload given ascites/ESRD. Just had ECHO with Dr. Valverde as outpatient 02/01 demonstratingh EF 60-65% and moderate aortic stenosis so little utility repeating again now (order canceled). Symptomatically much improved with para, can neo to wean and use Nasal canula. (4) HTN (hypertension) Current Visit: Yes Status: Acute Code(s): I10 - ESSENTIAL (PRIMARY) HYPERTENSION SNOMED Code(s): 09536087 Comment: home Amlodipine and atenolol both d/c'd. Midodrine 5 mg before each dialysis. (5) Hypothyroid Current Visit: Yes Status: Chronic Code(s): E03.9 - HYPOTHYROIDISM, UNSPECIFIED SNOMED Code(s): 49512893 Comment: TSH 12.39. Levothyroxine 125mcg (6) Anxiety Current Visit: Yes Status: Acute Code(s): F41.9 - ANXIETY DISORDER, UNSPECIFIED SNOMED Code(s): 22409163 Comment: ativan prn (7) DVT prophylaxis Current Visit: Yes Status: Acute Code(s): CGU1150 - SNOMED Code(s): 582910788 Comment: Heparin sq Status and Disposition: medicine inpatient. Likely ultimate hospice (home vs residential). Attending: Sadi Fowler
[2017-02-13] MEDS: Heparin VIAL(*) 5000 UNITS/ML VIAL (FIVE THOUSAND) SUBCUT SCH ×3 (05:40→20:32)
[2017-02-13] MEDS: Levothyroxine TAB* 125 MCG TAB PO SCH (05:40)
[2017-02-13] MEDS: CMC:Midodrine (NF) 5 MG TAB PO PRN (08:23)
[2017-02-13] MEDS: Omeprazole CAP* 20 MG PO SCH (08:23)
[2017-02-13] MEDS: guaiFENesin LIQ* 100 MG/5 ML UDC PO SCH ×4 (08:23→20:32)
[2017-02-13] MEDS: Sodium Citrate/Citric Acid* 15 ML UDC PO SCH ×2 (08:23→20:32)
[2017-02-13] MEDS ORDERED: Epoetin Alfa* 10,000 UNITS/ML VIAL IV ONE (09:00)
--- NOTE | 2017-02-13 13:24 | PN ---
Subjective Date of Service: 02/13/17 Interval History: Pt slept well, continues on 5L. Tolerating HD so far this am. No abdominal pain. Breathing minimally more labored subjectively. Objective Active Medications: Acetaminophen (Tylenol Tab*) 650 mg PO Q4H PRN PRN Reason: FEVER/PAIN Alprazolam (Xanax Tab*) 0.25 mg PO Q6H PRN PRN Reason: ANXIETY Citric Acid/Sodium Citrate (Bicitra*) 15 ml PO BID [facility] Last Admin: 02/13/17 08:23 Dose: 15 ml Guaifenesin (Robitussin*) 10 ml PO QID [facility] Last Admin: 02/13/17 12:53 Dose: Not Given Heparin Sodium (Porcine) (Heparin Vial(*)) 5,000 units SUBCUT Q8HR [facility] Last Admin: 02/13/17 05:40 Dose: 5,000 units Levothyroxine Sodium (Synthroid Tab*) 125 mcg PO 0600 [facility] Last Admin: 02/13/17 05:40 Dose: 125 mcg Midodrine (Midodrine (Nf)) 5 mg PO Q48HR PRN; Protocol PRN Reason: dialysis Last Admin: 02/13/17 08:23 Dose: 5 mg Omeprazole (Prilosec Cap*) 20 mg PO DAILY [facility] Last Admin: 02/13/17 08:23 Dose: Not Given Oxycodone/Acetaminophen (Percocet 5/325 Tab*) 1 tab PO Q4H PRN PRN Reason: PAIN Vital Signs 02/12/17 02/12/17 02/13/17 19:48 20:00 04:46 Temperature 97.6 F 97.5 F Pulse Rate 69 66 Respiratory 24 21 16 Rate Blood Pressure 108/55 109/56 (mmHg) O2 Sat by Pulse 95 94 Oximetry 02/13/17 02/13/17 08:00 12:52 Temperature Pulse Rate Respiratory 16 Rate Blood Pressure (mmHg) O2 Sat by Pulse 94 Oximetry Oxygen Devices in Use Now: Simple Face Mask - used intermittently Appearance: Chronically ill appearing Ears/Nose/Mouth/Throat: NL Teeth, Lips, Gums, Mucous Membranes Moist Neck: NL Appearance and Movements; NL JVP Respiratory: Symmetrical Chest Expansion and Respiratory Effort, Clear to Auscultation Cardiovascular: NL Sounds; No Murmurs; No JVD, RRR, No Edema Abdominal: - - soft, nontender, slightly distended but unchanged. slight fluid wave. Extremities: No Edema, No Clubbing, Cyanosis Skin: No Rash or Ulcers Neurological: Alert and Oriented x 3, NL Muscle Strength and Tone Result Diagrams: 02/08/17 14:30 02/12/17 13:52 Additional Lab and Data: Pleural Fluid CEA 90123, LDH 883, Total Protein 4.4 ABC 435, Neutrophil 23% 02/10/17 02/10/17 02/10/17 09:23 09:23 09:23 Sodium Potassium Chloride Carbon Dioxide Anion Gap BUN Creatinine Est GFR ( Amer) Est GFR (Non-Af Amer) BUN/Creatinine Ratio Glucose POC Glucose (mg/dL) Calcium Fluid Source Peritoneal fluid Peritoneal fluid Fluid Volume Fluid Color Fluid Appearance Fluid WBC Fluid RBC Fluid Tot Cell Count Fluid Neutrophils Fluid Lymphocytes Fluid Monocytes Fluid Total Protein 4.4 Fluid LDH 883 Miscellaneous Test See comment 02/10/17 02/11/17 02/12/17 09:23 08:01 13:52 Sodium 135 Potassium 4.6 Chloride 91 L Carbon Dioxide 28 Anion Gap 16 H BUN 84 H Creatinine 7.11 H Est GFR ( Amer) 9.6 Est GFR (Non-Af Amer) 7.5 BUN/Creatinine Ratio 11.8 Glucose 138 H POC Glucose (mg/dL) 120 H Calcium 7.5 L Fluid Source Peritonial fluid Fluid Volume 1000 Fluid Color Carmela Fluid Appearance Cloudy Fluid WBC 435 Fluid RBC 3455 Fluid Tot Cell Count 100 Fluid Neutrophils 23 Fluid Lymphocytes 14 Fluid Monocytes 63 Fluid Total Protein Fluid LDH Miscellaneous Test Microbiology and Other Data: Microbiology Microbiology 02/10/17 09:23 Sterile Body Fluid Culture - Preliminary Peritoneal Fluid No Growth Day 3 Sterile Body Fluid Culture - Preliminary No Growth Day 3 02/10/17 09:23 Gram Stain - Final Body Fluid - Peritoneal Anaerobic Culture - Preliminary No Growth Day 3 Assess/Plan/Problems-Billing Assessment: 81 year old 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 Peritoneal CEA markedly elevated, pt has never had colonoscopy. Not considering chemotherapy or even biopsy but wanting therapeutic paracentesis/ hemodialysis for time being while getting affairs in order and possibly continuing in hospice. - Patient Problems (1) Hepatic metastases Current Visit: Yes Status: Acute Code(s): C78.7 - SECONDARY MALIG NEOPLASM OF LIVER AND INTRAHEPATIC BILE DUCT SNOMED Code(s): 18062665 Comment: Multiple hepatic masses (4.7, 4.6, 2.9cm), peritoneal caking. Ascites (3.5L removed 02/10). Likely not a candidate for chemotherapy given ESRD now requiring HD and not wanting anyway. Hospice likely ultimate destination after "puts affairs in order" with symptomatic HD/paracentesis relief of acute respiratory failure. Markedly elevated ascites CEA 14059. Pt never had a colonoscopy. Elevated ascites protein 4.4 and LDH 883. Add on albumin is a send out and likely wont be back until 02/15. PMN ~100 (2) ESRD (end stage renal disease) Current Visit: Yes Status: Acute Code(s): N18.6 - END STAGE RENAL DISEASE SNOMED Code(s): 59015468 Comment: HD catheter L chest. Better toleration of pressures with midodrine 5 mg. Tolerated okay today. Given peritoneal carcinomatosis, peritoneal dialysis not likely an option. Appreciate Nephrology recs. (3) Acute respiratory failure with hypoxia Current Visit: Yes Status: Acute Code(s): J96.01 - ACUTE RESPIRATORY FAILURE WITH HYPOXIA SNOMED Code(s): 66755012 Comment: Likely secondary to volume overload given ascites/ESRD. Just had ECHO with Dr. Valverde as outpatient 02/01 demonstratingh EF 60-65% and moderate aortic stenosis so little utility repeating again now (order canceled). Symptomatically much improved with para, can try to wean and use Nasal canula. (4) HTN (hypertension) Current Visit: Yes Status: Acute Code(s): I10 - ESSENTIAL (PRIMARY) HYPERTENSION SNOMED Code(s): 32401132 Comment: home Amlodipine and atenolol both d/c'd. Midodrine 5 mg before each dialysis. (5) Hypothyroid Current Visit: Yes Status: Chronic Code(s): E03.9 - HYPOTHYROIDISM, UNSPECIFIED SNOMED Code(s): 88265274 Comment: TSH 12.39. Levothyroxine 125mcg (6) Anxiety Current Visit: Yes Status: Acute Code(s): F41.9 - ANXIETY DISORDER, UNSPECIFIED SNOMED Code(s): 01035872 Comment: ativan prn (7) DVT prophylaxis Current Visit: Yes Status: Acute Code(s): QBE1840 - SNOMED Code(s): 462375332 Comment: Heparin sq Status and Disposition: medicine inpatient. Waiting on patient and to decide on if they want to pursue hospice (home vs residential). Attending: Sadi Fowler
[2017-02-13] MEDS ORDERED: oxyCODONE/Acetamin 5/325 MG* TAB PO PRN (14:50)
[2017-02-14] MEDS: Levothyroxine TAB* 125 MCG TAB PO SCH (05:41)
[2017-02-14] MEDS: Heparin VIAL(*) 5000 UNITS/ML VIAL (FIVE THOUSAND) SUBCUT SCH ×3 (05:41→22:08)
[2017-02-14] MEDS: Sodium Citrate/Citric Acid* 15 ML UDC PO SCH ×2 (07:11→22:08)
[2017-02-14] MEDS: guaiFENesin LIQ* 100 MG/5 ML UDC PO SCH ×4 (07:11→22:08)
[2017-02-14] MEDS: Omeprazole CAP* 20 MG PO SCH (07:11)
--- NOTE | 2017-02-14 15:19 | PN ---
Subjective Date of Service: 02/14/17 Interval History: Slept okay but very fatigued. Switched back to mask as NC even with tape, coming off. No abdominal pain. HD yesterday Objective Active Medications: Acetaminophen (Tylenol Tab*) 650 mg PO Q4H PRN PRN Reason: FEVER/PAIN Alprazolam (Xanax Tab*) 0.25 mg PO Q6H PRN PRN Reason: ANXIETY Citric Acid/Sodium Citrate (Bicitra*) 15 ml PO BID [facility] Last Admin: 02/14/17 07:11 Dose: Not Given Guaifenesin (Robitussin*) 10 ml PO QID [facility] Last Admin: 02/14/17 12:58 Dose: Not Given Heparin Sodium (Porcine) (Heparin Vial(*)) 5,000 units SUBCUT Q8HR [facility] Last Admin: 02/14/17 13:03 Dose: 5,000 units Levothyroxine Sodium (Synthroid Tab*) 125 mcg PO 0600 [facility] Last Admin: 02/14/17 05:41 Dose: 125 mcg Midodrine (Midodrine (Nf)) 5 mg PO Q48HR PRN; Protocol PRN Reason: dialysis Last Admin: 02/13/17 08:23 Dose: 5 mg Omeprazole (Prilosec Cap*) 20 mg PO DAILY [facility] Last Admin: 02/14/17 07:11 Dose: Not Given Oxycodone/Acetaminophen (Percocet 5/325 Tab*) 1 tab PO Q4H PRN PRN Reason: PAIN Vital Signs 02/13/17 02/13/17 02/13/17 16:12 19:21 23:45 Temperature 98.2 F 98.5 F Pulse Rate 73 73 Respiratory 32 19 20 Rate Blood Pressure 105/58 117/58 (mmHg) O2 Sat by Pulse 93 94 Oximetry 02/14/17 02/14/17 03:55 07:22 Temperature 98.0 F Pulse Rate 71 Respiratory 20 20 Rate Blood Pressure 109/53 (mmHg) O2 Sat by Pulse 96 Oximetry Oxygen Devices in Use Now: Simple Face Mask - used intermittently Appearance: chronically ill appearing, no acute distress Eyes: No Scleral Icterus, PERRLA Ears/Nose/Mouth/Throat: NL Teeth, Lips, Gums, - - irritation at left nare Neck: NL Appearance and Movements; NL JVP, Trachea Midline Respiratory: Symmetrical Chest Expansion and Respiratory Effort, Clear to Auscultation Cardiovascular: NL Sounds; No Murmurs; No JVD, RRR Abdominal: - - soft, slightly distended, nontender. stable Extremities: No Edema, No Clubbing, Cyanosis Skin: No Rash or Ulcers Neurological: Alert and Oriented x 3 Lines/Tubes/Other Access: Clean, Dry and Intact Central Line - dialysis catheter , left superior chest Result Diagrams: 02/08/17 14:30 02/12/17 13:52 Additional Lab and Data: Pleural Fluid CEA 57570, LDH 883, Total Protein 4.4 ABC 435, Neutrophil 23% 02/10/17 02/10/17 02/10/17 09:23 09:23 09:23 Sodium Potassium Chloride Carbon Dioxide Anion Gap BUN Creatinine Est GFR ( Amer) Est GFR (Non-Af Amer) BUN/Creatinine Ratio Glucose POC Glucose (mg/dL) Calcium Fluid Source Peritoneal fluid Peritoneal fluid Fluid Volume Fluid Color Fluid Appearance Fluid WBC Fluid RBC Fluid Tot Cell Count Fluid Neutrophils Fluid Lymphocytes Fluid Monocytes Fluid Total Protein 4.4 Fluid LDH 883 Miscellaneous Test See comment 02/10/17 02/11/17 02/12/17 09:23 08:01 13:52 Sodium 135 Potassium 4.6 Chloride 91 L Carbon Dioxide 28 Anion Gap 16 H BUN 84 H Creatinine 7.11 H Est GFR ( Amer) 9.6 Est GFR (Non-Af Amer) 7.5 BUN/Creatinine Ratio 11.8 Glucose 138 H POC Glucose (mg/dL) 120 H Calcium 7.5 L Fluid Source Peritonial fluid Fluid Volume 1000 Fluid Color Carmela Fluid Appearance Cloudy Fluid WBC 435 Fluid RBC 3455 Fluid Tot Cell Count 100 Fluid Neutrophils 23 Fluid Lymphocytes 14 Fluid Monocytes 63 Fluid Total Protein Fluid LDH Miscellaneous Test Microbiology and Other Data: Microbiology Microbiology 02/10/17 09:23 Sterile Body Fluid Culture - Preliminary Peritoneal Fluid No Growth Day 3 Sterile Body Fluid Culture - Preliminary No Growth Day 3 02/10/17 09:23 Gram Stain - Final Body Fluid - Peritoneal Anaerobic Culture - Preliminary No Growth Day 3 Assess/Plan/Problems-Billing Assessment: 81 year old 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 Peritoneal CEA markedly elevated, pt has never had colonoscopy. Not considering chemotherapy or even biopsy. Decision to go home with hospice after last dialysis session 02/15 - Patient Problems (1) Hepatic metastases Current Visit: Yes Status: Acute Priority: High Code(s): C78.7 - SECONDARY MALIG NEOPLASM OF LIVER AND INTRAHEPATIC BILE DUCT SNOMED Code(s): 22613015 Comment: Multiple hepatic masses (4.7, 4.6, 2.9cm), peritoneal caking. Ascites (3.5L removed 02/10). . Markedly elevated ascites CEA 49439. Pt never had a colonoscopy. Elevated ascites protein 4.4 and LDH 883. Add on albumin is a send out and likely wont be back until 02/15. PMN ~100. No biopsy wanted. (2) ESRD (end stage renal disease) Current Visit: Yes Status: Acute Code(s): N18.6 - END STAGE RENAL DISEASE SNOMED Code(s): 40224033 Comment: HD catheter L chest. will get last dialysis 02/15 (3) Acute respiratory failure with hypoxia Current Visit: Yes Status: Acute Code(s): J96.01 - ACUTE RESPIRATORY FAILURE WITH HYPOXIA SNOMED Code(s): 37818696 Comment: Likely secondary to volume overload given ascites/ESRD. Just had ECHO with Dr. Valverde as outpatient 02/01 demonstratingh EF 60-65% and moderate aortic stenosis so little utility repeating again now (order canceled). Symptomatically much improved with para. supplemental oxygen prn (4) HTN (hypertension) Current Visit: Yes Status: Acute Code(s): I10 - ESSENTIAL (PRIMARY) HYPERTENSION SNOMED Code(s): 54954184 Comment: home Amlodipine and atenolol both d/c'd. Midodrine 5 mg before each dialysis. (5) Hypothyroid Current Visit: Yes Status: Chronic Code(s): E03.9 - HYPOTHYROIDISM, UNSPECIFIED SNOMED Code(s): 49759755 Comment: TSH 12.39. Levothyroxine 125mcg (6) Anxiety Current Visit: Yes Status: Acute Code(s): F41.9 - ANXIETY DISORDER, UNSPECIFIED SNOMED Code(s): 11490456 Comment: ativan prn (7) DVT prophylaxis Current Visit: Yes Status: Acute Code(s): QHX1033 - SNOMED Code(s): 177032855 Comment: Heparin sq Status and Disposition: medicine inpatient. To home hospice with supplemental oxygen after dialysis 02/15. Attending: Sadi Fowler
[2017-02-15] MEDS: Levothyroxine TAB* 125 MCG TAB PO SCH (06:13)
[2017-02-15] MEDS: Heparin VIAL(*) 5000 UNITS/ML VIAL (FIVE THOUSAND) SUBCUT SCH ×3 (06:13→22:01)
[2017-02-15] MEDS: Sodium Citrate/Citric Acid* 15 ML UDC PO SCH ×2 (09:35→21:57)
[2017-02-15] MEDS: guaiFENesin LIQ* 100 MG/5 ML UDC PO SCH ×4 (09:36→22:04)
[2017-02-15] MEDS: Omeprazole CAP* 20 MG PO SCH (09:36)
[2017-02-15] MEDS: CMC:Midodrine (NF) 5 MG TAB PO PRN (10:37)
[2017-02-15] MEDS ORDERED: Epoetin Alfa* 10,000 UNITS/ML VIAL IV ONE (13:00)
--- NOTE | 2017-02-15 16:47 | PN ---
Subjective Date of Service: 02/15/17 Interval History: Tested for oxygen sat at various levels. Tolerating 3L. Tolerated dialysis today. Fatigued. poor po intake. Objective Active Medications: Acetaminophen (Tylenol Tab*) 650 mg PO Q4H PRN PRN Reason: FEVER/PAIN Citric Acid/Sodium Citrate (Bicitra*) 15 ml PO BID [facility] Last Admin: 02/15/17 09:35 Dose: 15 ml Guaifenesin (Robitussin*) 10 ml PO QID [facility] Last Admin: 02/15/17 16:14 Dose: Not Given Heparin Sodium (Porcine) (Heparin Vial(*)) 5,000 units SUBCUT Q8HR [facility] Last Admin: 02/15/17 14:32 Dose: Not Given Levothyroxine Sodium (Synthroid Tab*) 125 mcg PO 0600 [facility] Last Admin: 02/15/17 06:13 Dose: 125 mcg Midodrine (Midodrine (Nf)) 5 mg PO Q48HR PRN; Protocol PRN Reason: dialysis Last Admin: 02/15/17 10:37 Dose: 5 mg Omeprazole (Prilosec Cap*) 20 mg PO DAILY [facility] Last Admin: 02/15/17 09:36 Dose: Not Given Oxycodone/Acetaminophen (Percocet 5/325 Tab*) 1 tab PO Q4H PRN PRN Reason: PAIN Vital Signs 02/14/17 02/14/17 02/14/17 19:37 20:00 23:34 Temperature 97.8 F 98.0 F Pulse Rate 74 75 Respiratory 24 22 20 Rate Blood Pressure 114/62 116/62 (mmHg) O2 Sat by Pulse 93 94 Oximetry 02/15/17 02/15/17 02/15/17 03:47 08:00 08:07 Temperature 97.9 F 98.1 F Pulse Rate 74 73 Respiratory 20 20 20 Rate Blood Pressure 106/64 105/60 (mmHg) O2 Sat by Pulse 93 91 Oximetry 02/15/17 15:49 Temperature 98.2 F Pulse Rate 81 Respiratory 24 Rate Blood Pressure 109/89 (mmHg) O2 Sat by Pulse 89 Oximetry Oxygen Devices in Use Now: Simple Face Mask - used intermittently Appearance: chronically ill appearing Eyes: No Scleral Icterus, PERRLA Ears/Nose/Mouth/Throat: NL Teeth, Lips, Gums, Mucous Membranes Moist Neck: NL Appearance and Movements; NL JVP, Trachea Midline Respiratory: - - anteriorly clear to auscultation, no wheezing, rales or rhonchi Cardiovascular: NL Sounds; No Murmurs; No JVD, RRR, No Edema Abdominal: - - soft, nontender, minimally more distended compared to past exams. Tympanic to percussion. Extremities: No Edema, No Clubbing, Cyanosis Skin: No Rash or Ulcers, No Nodules or Sclerosis Neurological: Alert and Oriented x 3, - - very fatigued Nutrition: Taking PO's Result Diagrams: 02/08/17 14:30 02/12/17 13:52 Additional Lab and Data: Pleural Fluid CEA 81105, LDH 883, Total Protein 4.4 ABC 435, Neutrophil 23% 02/10/17 02/10/17 02/10/17 09:23 09:23 09:23 Sodium Potassium Chloride Carbon Dioxide Anion Gap BUN Creatinine Est GFR ( Amer) Est GFR (Non-Af Amer) BUN/Creatinine Ratio Glucose POC Glucose (mg/dL) Calcium Fluid Source Peritoneal fluid Peritoneal fluid Fluid Volume Fluid Color Fluid Appearance Fluid WBC Fluid RBC Fluid Tot Cell Count Fluid Neutrophils Fluid Lymphocytes Fluid Monocytes Fluid Total Protein 4.4 Fluid LDH 883 Miscellaneous Test See comment 02/10/17 02/11/17 02/12/17 09:23 08:01 13:52 Sodium 135 Potassium 4.6 Chloride 91 L Carbon Dioxide 28 Anion Gap 16 H BUN 84 H Creatinine 7.11 H Est GFR ( Amer) 9.6 Est GFR (Non-Af Amer) 7.5 BUN/Creatinine Ratio 11.8 Glucose 138 H POC Glucose (mg/dL) 120 H Calcium 7.5 L Fluid Source Peritonial fluid Fluid Volume 1000 Fluid Color Carmela Fluid Appearance Cloudy Fluid WBC 435 Fluid RBC 3455 Fluid Tot Cell Count 100 Fluid Neutrophils 23 Fluid Lymphocytes 14 Fluid Monocytes 63 Fluid Total Protein Fluid LDH Miscellaneous Test Microbiology and Other Data: Microbiology Microbiology 02/10/17 09:23 Sterile Body Fluid Culture - Preliminary Peritoneal Fluid No Growth Day 3 Sterile Body Fluid Culture - Preliminary No Growth Day 3 02/10/17 09:23 Gram Stain - Final Body Fluid - Peritoneal Anaerobic Culture - Preliminary No Growth Day 3 Assess/Plan/Problems-Billing Assessment: 81 year old 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 Peritoneal CEA markedly elevated, pt has never had colonoscopy. Not considering chemotherapy or even biopsy. Decision to go home with hospice on 02/16 (last dialysis session 02/15) after home services finalized. - Patient Problems (1) Hepatic metastases Current Visit: Yes Status: Acute Priority: High Code(s): C78.7 - SECONDARY MALIG NEOPLASM OF LIVER AND INTRAHEPATIC BILE DUCT SNOMED Code(s): 65762640 Comment: Multiple hepatic masses (4.7, 4.6, 2.9cm), peritoneal caking. Ascites (3.5L removed 02/10). . Markedly elevated ascites CEA 48959. Pt never had a colonoscopy. Elevated ascites protein 4.4 and LDH 883. Add on albumin is a send out and likely wont be back until Wed 02/15. PMN ~100. No biopsy wanted. (2) ESRD (end stage renal disease) Current Visit: Yes Status: Acute Code(s): N18.6 - END STAGE RENAL DISEASE SNOMED Code(s): 43975490 Comment: HD catheter L chest - Likely to remove prior to discharge, patient considering. s/p last dialysis 02/15. (3) Acute respiratory failure with hypoxia Current Visit: Yes Status: Acute Code(s): J96.01 - ACUTE RESPIRATORY FAILURE WITH HYPOXIA SNOMED Code(s): 17193115 Comment: Likely secondary to volume overload given ascites/ESRD. Just had ECHO with Dr. Valverde as outpatient 02/01 demonstratingh EF 60-65% and moderate aortic stenosis so little utility repeating again now (order canceled). Symptomatically much improved with para. supplemental oxygen prn (4) HTN (hypertension) Current Visit: Yes Status: Acute Code(s): I10 - ESSENTIAL (PRIMARY) HYPERTENSION SNOMED Code(s): 54856422 Comment: home Amlodipine and atenolol both d/c'd. Midodrine 5 mg before each dialysis. (5) Hypothyroid Current Visit: Yes Status: Chronic Code(s): E03.9 - HYPOTHYROIDISM, UNSPECIFIED SNOMED Code(s): 66510906 Comment: TSH 12.39. Levothyroxine 125mcg (6) Anxiety Current Visit: Yes Status: Acute Code(s): F41.9 - ANXIETY DISORDER, UNSPECIFIED SNOMED Code(s): 31575124 Comment: ativan prn (7) DVT prophylaxis Current Visit: Yes Status: Acute Code(s): JLD5595 - SNOMED Code(s): 663503491 Comment: Heparin sq Status and Disposition: medicine inpatient. To home hospice with supplemental oxygen on 02/16. Attending: Sadi Fowler
[2017-02-16] MEDS: Levothyroxine TAB* 125 MCG TAB PO SCH (06:11)
[2017-02-16] MEDS: Heparin VIAL(*) 5000 UNITS/ML VIAL (FIVE THOUSAND) SUBCUT SCH ×2 (06:11→16:29)
[2017-02-16] MEDS: guaiFENesin LIQ* 100 MG/5 ML UDC PO SCH ×3 (09:04→19:27)
[2017-02-16] MEDS: Sodium Citrate/Citric Acid* 15 ML UDC PO SCH (09:04)
[2017-02-16] MEDS: Omeprazole CAP* 20 MG PO SCH (09:04)
[2017-02-16 10:00] VITALS: BP 105/53
--- NOTE | 2017-02-17 03:36 | PRO ---
DATE OF PROCEDURE: 02/16/17 - ROOM #407 SURGEON: Trent Mari MD HISTORY: The patient is an 81-year-old male who came in with renal failure and had a Tesio dialysis catheter placed approximately 10 days ago. 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 Fowler has asked me to remove the dialysis catheter. I discussed this with the patient and I suspect that at 10 days, it will likely slide out relatively easily and I discussed this with him and he is agreeable to this approach. DESCRIPTION OF PROCEDURE: Therefore, at the bedside, the area is cleansed with some alcohol. The sutures are cut and both limbs of the Tesio catheter slide out very easily. Pressure bandage is held for about 5 minutes and then a bulky gauze is placed on top. The head of the bed is seated up about 30 degrees to decrease venous pressure, and he can safely be discharged at any time as the hospital service determines. The bandage will remain on until tomorrow and then can be removed. [id number]/[facility] #: [id number] MTDD
--- NOTE | 2017-02-17 06:38 | DS ---
CC: Dr. Tavo Zimmerman* DISCHARGE SUMMARY: DATE OF ADMISSION: 02/04/17 DATE OF DISCHARGE: 02/16/17 PRIMARY CARE PHYSICIAN: Dr. Tavo Zimmerman Admitting Provider: Dangelo Barajas NP Attending Provider: Willie Peacock MD and Sadi Fowler MD CHIEF COMPLAINT: Dyspnea on exertion. 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 HOSPITAL COURSE/HISTORY OF PRESENT ILLNESS: Trent Dockery, past medical history of CKD Stage V (had been awaiting peritoneal dialysis access as an outpatient), HTN, HLD, basal cell carcinoma, hypothyroidism presented with worsening dyspnea on minimal exertion and abdominal swelling. Please see H&P on 02/04 for full details. In ED he was given diuretics and preparations were made for hemodialysis with a tunneled catheter placed by surgeons. CT Abdomen demonstrated ascites, likely peritoneal carcinomatosis and liver mets/lesions up to 2.8 cm large.A diagnostic and therapeutic paracentesis with removed 3.5 L of ascites and brought significant relief of his respiratory distress and stabbing abdominal pain on left side. Ascites was notable for quite elevated CEA above 10,000, ~100 PMNs, LDH of 883, Total protein of 4.4. Negative fluid Gram stain and culture. Ascites Albumin was still pending (A send off to [place]). The patient underwent 4 hemodialysis sessions. Nephrology and Hematology/ Oncology were consulted given the constellation of findings very suggestive of a cancer causing the ascites and has now progression to end-stage renal disease. The patient had rodrigue conversations including with palliative care consultation and ultimately decided to not pursue further diagnostic testing with liver or other biopsies as he also had decided not to pursue any chemotherapy (even if indicated which given his co-morbidities likely would not have been offered). The patient ultimately decided to go home with home hospice. Hemodialysis catheter was removed at bedside on day of discharge, 12/26, hospital bed and supplemental home oxygen were set up at home. The patient and were appreciative of care. Physical exam on discharge included soft abdomen with some modest distention but positive fluid wave, nontender. The patient required 3 L upon discharge. Pt had never had colonoscopy. DISCHARGE MEDICATIONS: tylenol 650mg q4 prn Disposition: Home w/ hospice CODE STATUS: DNR/DNI. DIET: Regular, unchanged. [id number]/[facility] #: [id number] CATHY
== END 2017-02-16 17:05 | disposition hospice, home (50) | DRG 435 ==
LOC: ED 13:55 → MEDTELE 16:27 → MED 02-09 22:00
PROVIDERS: ADMIT Internal Medicine; ATTEND Internal Medicine
PROC: 05HN33Z Insertion of Infusion Device into Left Internal Jugular Vein, Percutaneous Approach (ICD-10-PCS; 2017-02-05)
PROC: 5A1D60Z (ICD-10-PCS; 2017-02-08)
PROC: 0W9G3ZZ Drainage of Peritoneal Cavity, Percutaneous Approach (ICD-10-PCS; principal; 2017-02-10 10:15)
DX: C78.7 Secondary malignant neoplasm of liver and intrahepatic bile duct (principal); N18.6 End stage renal disease; J96.01 Acute respiratory failure with hypoxia; R18.0 Malignant ascites; R18.8 Other ascites; C78.6 Secondary malignant neoplasm of retroperitoneum and peritoneum; I95.9 Hypotension, unspecified; I12.0 Hypertensive chronic kidney disease with stage 5 chronic kidney disease or end stage renal disease; K74.60 Unspecified cirrhosis of liver; I35.0 Nonrheumatic aortic (valve) stenosis; E03.9 Hypothyroidism, unspecified; Z95.0 Presence of cardiac pacemaker; Z85.828 Personal history of other malignant neoplasm of skin; Z96.641 Presence of right artificial hip joint; Z82.49 Family history of ischemic heart disease and other diseases of the circulatory system; Z82.3 Family history of stroke; F41.9 Anxiety disorder, unspecified; Z66 Do not resuscitate; C80.1 Malignant (primary) neoplasm, unspecified
CPT/HCPCS: 36415; 36600; 49082; 71010; 71275; 74176; 76705; 80048; 80053; 81003; 81015; 82042; 82803; 83605; 83615; 83735; 83880; 84100; 84157; 84443; 84484; 85025; 85610; 85730; 86480; 86704; 86706; 86803; 87040; 87073; 87205; 87340; 88112; 89051; 90935; 93005; A9270-GY; C1750; G0257; J0690; J0885; J1642; J1644; J1940; J2001; J2250; J2704; J3010; Q9967